=== PATIENT | female | born 1940 | race Caucasian/White ===

== ENCOUNTER 2020-01-15 08:20 | Observation (INO) ==
[2020-01-15] MEDS ORDERED: IOPAMIDOL 100 ML BOTTLE IV ONE (08:21)
[2020-01-15] MEDS ORDERED: 0.9 % SODIUM CHLORIDE 1,000 ML IV ONE (08:44)
[2020-01-15 08:48] LABS: POC Blood Urea Nitrogen 18 mg/dl (8-23); POC CO2 21 mmol/L (22-30); POC Calcium, Ionized 0.98 mmol/L (1.16-1.32); POC Chloride 105 mmol/L (96-108); POC Creatinine 0.6 mg/dl (0.6-1.1); POC Glucose, Random 130 mg/dL (70-105); POC Potassium 3.2 mmol/L (3.3-5.1); POC Sodium 138 mmol/L (133-145)
[2020-01-15] MEDS ORDERED: 0.9 % SODIUM CHLORIDE 1,000 ML IV SCH ×2 (09:15→13:15)
[2020-01-15 09:20] LABS: Basophils # (Auto) 0.05 K/mcL (0.00-0.30); Basophils % (Auto) 0.3 % (0.0-2.0); Eosinophils # (Auto) 0.03 K/mcL (0.00-0.70); Eosinophils % (Auto) 0.2 % (0.0-7.0); Granulocytes % (Auto) 80.5 % (38.0-78.0); Hematocrit 42.3 % (34.1-44.9); Hemoglobin 13.2 g/dL (11.2-15.7); Lymphocytes # (Auto) 1.52 K/mcL (1.50-4.80); Lymphocytes % (Auto) 9.4 % (15.5-49.0); Mean Cell Volume 77.5 fL (80.0-100.0); Mean Corpuscular HGB Conc 31.2 g/dL (31.0-36.0); Mean Platelet Volume 9.6 fL (7.4-10.4); Monocytes # (Auto) 1.55 K/mcL (0.10-0.90); Monocytes % (Auto) 9.6 % (1.0-12.0); Platelet Count 528 K/mcL (140-440); RBC 5.46 M/mcL (3.59-5.38); Red Cell Distribution Width 17.1 % (11.5-14.5); WBC 16.2 K/mcL (4.50-11.00)
--- NOTE | 2020-01-15 09:22 | XRay Report ---
INDICATION: confusion TECHNIQUE: AP portable upright chest x-ray COMPARISON: Previous chest x-ray dated 01/12/2020 and 12/25/2019 FINDINGS: Lungs:Left lung is negative. No parenchymal infiltrate or mass. There is density at the right lung base. Appearance is most consistent with a pleural reflection. No focal parenchymal mass or infiltrate. No interval change Heart, vascular:No significant cardiomegaly. Pulmonary vascularity is normal. No pulmonary edema or pulmonary congestion Mediastinum, [place]:No mediastinal widening. No hilar mass. There is a moderate to large hiatal hernia Pleura:No pleural fluid. No pleural-based mass or calcification Skeletal:No detectable rib fracture or lytic lesion. There is right convex thoracic scoliosis. IMPRESSION: 1. Hiatal hernia 2. No acute abnormality or interval change since 01/12/2020 Interpreted and Authenticated by: Mariano Rouse 01/15/20
[2020-01-15 09:39] LABS: ALT/SGPT 24 U/l (0-40); AST/SGOT 37 U/l (0-37); Albumin 4.1 gm/dL (3.2-5.2); Albumin/Globulin Ratio 0.9 (1.0-2.3); Alkaline Phosphatase 80 U/L (39-117); Bilirubin,Total 0.3 mg/dL (0.0-1.0); Blood Urea Nitrogen 18 mg/dl (8-23); Carbon Dioxide 22 mmol/L (22-30); Chloride 99 mmol/L (96-108); Globulin 4.5 gm/dL (2.2-3.7); Glomerular Filtration Rate 71; Glucose 128 mg/dL (70-105)
[2020-01-15 10:40] LABS: Appearance,Urine CLOUDY; Bacteria,Urine 0 /hpf (0); Bilirubin,Urine NEG (NEG); Color,Urine AMBER; Culture Indicated,Urine NO; Glucose,Urine (UA) 50 mg/dL (NEG); Ketones,Urine 20 mg/dL (NEG); Leukocyte Esterase,Urine NEG /uL (NEG); Mucus,Urine MANY /hpf (0); Nitrate,Urine NEG (NEG); Protein,Urine 100 mg/dL (NEG); Specific Gravity,Urine 1.019 (1.000-1.035); Urine Blood NEG mg/dL (<0.03); Urine Hyaline Cast 136 /lpf (0-2); Urine RBC 0 /hpf (0-1); Urine Squamous Epithelial Cell 0 /hpf (0-4); Urine WBC 4 /hpf (0-4); Urobilinogen,Urine NEG (NEG)
--- NOTE | 2020-01-15 11:53 | Cat Scan Report ---
INDICATION: confusion, vertigo COMPARISON: None. TECHNIQUE: Axial noncontrast-enhanced images through the brain. Sagittally and coronally reformatted images. FINDINGS: Cerebral hemispheres:No acute intra-axial hematoma. There is cerebral atrophy with prominent superficial subarachnoid spaces and ventricles. There is extensive white matter abnormality. Appearance is consistent with small vessel ischemic change in this 79-year-old patient. No focal intra-axial attenuation abnormality or localized mass effect. No acute abnormality. Brainstem and cerebellum:No intra-axial abnormality Extra-axial:No acute hemorrhage. No subdural or epidural hematoma. No subarachnoid hemorrhage. Basilar cisterns are normal Calvarial:No calvarial fracture. No lytic lesion Temporal bones are negative. No destructive lesions Soft tissue, orbits, sinuses:Orbits and visualized facial soft tissues are grossly normal. IMPRESSION: 1. Cerebral atrophy and severe white matter abnormality 2. No acute or focal intracranial abnormality. The exam was performed using radiation dose optimization techniques including, but not limited to, automated exposure control, adjustment of the mA and/or kV according to patient size and use of iterative reconstruction technique. Interpreted and Authenticated by: Mariano Rouse 01/15/20
--- NOTE | 2020-01-15 12:05 | Cat Scan Report ---
INDICATION: confusion, vertigo, urine incontinence, hallucinat COMPARISON: None. TECHNIQUE: Axial images were obtained through the abdomen and pelvis. Sagittally and coronally reformatted images. 70 mL Isovue 370 injected intravenously. Oral contrast material was not administered FINDINGS: Lung bases:Negative. No pulmonary parenchymal nodule. No pleural fluid or pericardial fluid. There is a moderate to large hiatal hernia. Liver:Low density liver consistent with hepatic steatosis. No focal hepatic mass. Liver contour is smooth. Gallbladder, bilary:No calcified gallstones. No gallbladder wall thickening. No dilated intra or extrahepatic bile ducts. Spleen:No splenomegaly. Normal enhancement of splenic and portal veins. Pancreas:No pancreatic mass. No peripancreatic abnormality Adrenal glands:Negative Kidneys, ureters, bladder:No solid or cystic renal mass. No hydronephrosis. Multiple nonobstructing renal calculi bilaterally. There is no significant hydronephrosis. There is no hydroureter. No ureteral stone No bladder calculi or detectable mass Gastrointestinal:There is extensive sigmoid diverticulosis. There are diverticula in the descending colon. Patient is status post previous partial colectomy with resection of the cecum and ascending colon. No detectable colonic mass. No evidence for acute diverticulitis. Small bowel is within normal limits. No mechanical small bowel obstruction. Stomach and duodenum are negative. Appendix: The appendix is not visualized due to previous partial colectomy. Vascular:Extensive calcified atherosclerotic plaque. No abdominal aortic aneurysm. There is calcified plaque in the common iliac arteries bilaterally. No aneurysm. Lymphatic:No retroperitoneal or mesenteric adenopathy Mesentery, peritoneum: No free intraperitoneal fluid. No mesenteric or retroperitoneal mass. Reproductive:Uterus is not identified. No adnexal mass Musculoskeletal:No lumbar compression fractures. Sacrum and pelvis are negative. No hip fracture. Multilevel degenerative disc disease and degenerative facet arthropathy. There is L5-S1 anterolisthesis. Multiple anterior abdominal wall hernias. There is no protruding bowel. No bowel obstruction. Hernias contain only mesenteric fat. There is no inguinal hernia. IMPRESSION: 1. Nonobstructing renal calculi bilaterally 2. Atherosclerotic disease. No abdominal aortic aneurysm 3. Previous partial colectomy. Sigmoid diverticulosis without evidence for diverticulitis 4. Multiple anterior abdominal wall hernias. No incarcerated bowel. No bowel obstruction 5. Hepatic steatosis 6. Degenerative disc disease. L5-S1 anterolisthesis The exam was performed using radiation dose optimization techniques including, but not limited to, automated exposure control, adjustment of the mA and/or kV according to patient size and use of iterative reconstruction technique. Interpreted and Authenticated by: Mariano Rouse 01/15/20
--- NOTE | 2020-01-15 12:19 | Emergency Department Note ---
Altered Mental Status HPI General Chief Complaint: Altered Mental Status Stated Complaint: altered mental status, dizzy, disoriented Time Seen by Provider: 01/15/20 09:03 Source: patient Mode of arrival: wheelchair Limitations: no limitations History of Present Illness HPI Narrative: Narrative: This 79-year-old female comes in complaining of urinary incontinence, vertigo, hallucinations, and weakness such that she cannot walk right now-she is having to hold onto things to get around. She denies fever or trouble breathing. Denies nausea vomiting. She is very thirsty right now and does not remember what she ate yesterday. She is on baclofen as well as cyclobenzaprine and took 3 muscle relaxers yesterday evening for back spasms-she does have pretty significant rheumatoid arthritis. She notes that she had horrible dreams. She is not a very good historian and cannot remember which she did yesterday. D enies fever recent illness Her daughter is in the room as well and gives me some additional history. She notes that this is an acute decline and normally she is able to function at home Related Data Home Medications Medication Instructions Recorded Confirmed calcium carbonate 500 mg PO DAILY 09/01/17 01/12/20 Previous Rx's Medication Instructions Recorded omeprazole 40 mg capsule,delayed 40 mg PO QDAY #90 cap 07/18/19 release baclofen 10 mg tablet 10 mg PO BID PRN #60 tab 08/16/19 ropinirole 0.5 mg tablet 0.5 mg PO .COMPLEX #150 tab 10/26/19 sertraline 50 mg tablet 50 mg PO QDAY #90 tab 11/13/19 ferrous sulfate 325 mg (65 mg 325 mg PO QDAY #30 tab 11/17/19 iron) tablet leflunomide 10 mg tablet See Rx Instructions .ROUTE 12/11/19 .COMPLEX #60 tab cyclobenzaprine 10 mg PO TID PRN #20 tab 12/25/19 hydrocodone 5 mg-acetaminophen 325 1 tab PO Q6H PRN #120 tab 01/12/20 mg tablet pregabalin 25 mg capsule 25 mg PO BID #60 cap 01/12/20 triamcinolone acetonide 0.5 % 1 applic TOPICAL BID #15 g 01/12/20 topical ointment Allergies Allergy/AdvReac Type Severity Reaction Status Date / Time No Known Drug Allergies Allergy Verified 01/15/20 08:22 seasonal allergies Allergy Unknown Unknown Uncoded 01/12/20 12:01 Review of Systems ROS ROS Narrative: Narrative: All systems ED: reviewed and negative except as stated. 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) Excessive sweating (Chronic) Chronic pain syndrome (Chronic) Knee pain (Chronic) Anxiety (Chronic) Fatigue (Chronic) Body aches (Chronic) Seasonal allergies (Chronic) Joint stiffness (Chronic) Joint pain (Chronic) Ankylosing spondylitis (Acute) Basal cell carcinoma (Chronic) Lumbar spondylosis (Chronic) PMR (polymyalgia rheumatica) (Chronic) Vertigo (Chronic) Hiatal hernia (Chronic) IBS (irritable bowel syndrome) (Chronic) Atrial fibrillation (Chronic) Thyroiditis (Chronic) Depression (Chronic) Rheumatic fever (Chronic) Rhinitis (Chronic) Back pain (Acute) Osteoarthritis (Acute) Rheumatoid arthritis (Acute) Medical History (Updated 01/15/20 @ 12:23 by Naman Childs MD) Ankylosing spondylitis (Acute) Anxiety (Chronic) Atrial fibrillation (Chronic) Back pain (Acute) Basal cell carcinoma (Chronic) Body aches (Chronic) Chronic pain syndrome (Chronic) Depression (Chronic) Encounter for long-term (current) use of high-risk medication (Acute) Encounter for wheelchair assessment (Chronic) Excessive sweating (Chronic) Fatigue (Chronic) Hiatal hernia (Chronic) History of echocardiogram (Chronic ~12/2011) History of EKG (Chronic ~08/2008) IBS (irritable bowel syndrome) (Chronic) Inflammatory arthritis (Acute) Joint pain (Chronic) Joint stiffness (Chronic) Knee pain (Chronic) Left knee pain (Acute) Lumbar spondylosis (Chronic) Normal CT scan of head (Chronic ~12/2011) Osteoarthritis (Acute) 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) PMR (polymyalgia rheumatica) (Chronic) Polyarthralgia (Acute) Rheumatic fever (Chronic) Rheumatoid arthritis (Acute) Rhinitis (Chronic) Screening mammogram, encounter for (Chronic ~12/2011) Seasonal allergies (Chronic) Thyroiditis (Chronic) Vertigo (Chronic) Surgical History (Updated 01/15/20 @ 12:23 by Naman Childs MD) History of colonoscopy (Chronic ~10/2010) History of knee surgery (Chronic) History of partial colectomy (Acute) Family History Father Arthritis Mother Hypertension Social History Smoking Status: Former smoker Alcohol Intake Frequency: does not drink Exam Narrative Narrative: Narrative: Alert oriented. No acute distress able to answer questions mostly appropriately. She is a relatively poor historian and there is some noted short-term memory deficits. Conjunctive are clear sclerae white nonicteric. Pupils are equal round and reactive. Extraocular movements are intact without nystagmus. She does not get increased nausea with moving her eyes. Bilateral tympanic membranes are normal with normal canals. Oropharynx is pink and moist. Tongue is midline. There is no dysarthria. Face is symmetrical. Neck is supple without lymphadenopathy or thyromegaly. No carotid bruit. Heart is regular rate and rhythm no murmur appreciated. Lungs are clear to auscultation bilaterally without wheezes rales rhonchi or respiratory distress. Abdomen is soft nontender nondistended. No peritoneal signs or guarding. No pedal edema. +2 radial pulse. General Limitations: no limitations Course Vital Signs Vital signs: Vital Signs Temperature 97.3 F 01/15/20 08:20 Pulse Rate 89 01/15/20 08:20 Respiratory Rate 20 01/15/20 08:20 Blood Pressure 128/71 01/15/20 08:20 Pulse Oximetry (%) 97 01/15/20 08:20 Temperature 97.3 F 01/15/20 08:20 Pulse Rate 76 01/15/20 10:16 Respiratory Rate 20 01/15/20 08:20 Blood Pressure 140/84 01/15/20 10:16 Pulse Oximetry (%) 98 01/15/20 10:16 MDM MDM Narrative Medical decision making narrative: Narrative: Evaluation work-up ordered with laboratory and chest x-ray. Exam was benign. History suggests possible overuse of muscle relaxers, that is an adverse drug event but suspect that would have worn off by now. Other things in the differential include urinary tract infection, pneumonia, infection or inflammation elsewhere Laboratory shows leukocytosis but urinalysis actually looks okay-despite her morning episode of incontinent. No acute cause is identified for her altered mental status. Chest x-ray is unrevealing. I reviewed her medical record and note that she has a ER visit and primary care visit in the last 2-week where she was diagnosed with pneumonia and given Augmentin and had some costochondritis as well. I discussed the case with Dr. Montemayor, our hospitalist as I did not feel this patient was safe to go home. She has some altered mental status with some confusion and leukocytosis unclear cause. We discussed the issues and felt patient would benefit from further investigation with CT scan of the head abdomen and pelvis. CT scans were unrevealing, did not show cause for her situation. I discussed with Dr. Montemayor again and he agreed to accept the patient for further care and evaluation in the hospital. I also discussed the situation with the patient and her daughter and they agreed with the plan to admit the patient for further care and work-up Lab Data Lab results reviewed: Yes I reviewed the patient's lab results. Result diagrams: 01/15/20 08:40 01/15/20 08:40 Labs: Lab Results 01/15/20 01/15/20 01/15/20 Range/Units 08:40 08:40 08:40 WBC 16.2 H (4.50-11.00) K/mcL RBC 5.46 H (3.59-5.38) M/mcL Hgb 13.2 (11.2-15.7) g/dL Hct 42.3 (34.1-44.9) % POC Hct 44.0 (36.0-48.0) % MCV 77.5 L (80.0-100.0) fL MCH 24.2 L (26.0-34.0) pg MCHC 31.2 (31.0-36.0) g/dL RDW 17.1 H (11.5-14.5) % Plt Count 528 H (140-440) K/mcL MPV 9.6 (7.4-10.4) fL Gran % 80.5 H (38.0-78.0) % Lymph % (Auto) 9.4 L (15.5-49.0) % [place] % (Auto) 9.6 (1.0-12.0) % Eos % (Auto) 0.2 (0.0-7.0) % Baso % (Auto) 0.3 (0.0-2.0) % Gran # 13.03 H (1.80-8.00) K/mcL Lymph # (Auto) 1.52 (1.50-4.80) K/mcL [place] # (Auto) 1.55 H (0.10-0.90) K/mcL Eos # (Auto) 0.03 (0.00-0.70) K/mcL Baso # (Auto) 0.05 (0.00-0.30) K/mcL VBG Lactic Acid 1.4 (0.5-2.0) mmol/L POC Sodium 138 (133-145) mmol/L Sodium 138 (133-145) mmol/L POC Potassium 3.2 L (3.3-5.1) mmol/L Potassium 3.4 (3.3-5.1) mmol/L POC Chloride 105 (96-108) mmol/L Chloride 99 (96-108) mmol/L Carbon Dioxide 22 (22-30) mmol/L POC Total CO2 21 L (22-30) mmol/L Anion Gap 17.0 H (8-16) POC BUN 18 (8-23) mg/dl BUN 18 (8-23) mg/dl Creatinine 0.8 (0.6-1.1) mg/dl POC Creatinine 0.6 (0.6-1.1) mg/dl GFR Calculation 71 Glucose 128 H (70-105) mg/dL POC Glucose 130 H (70-105) mg/dL Calcium 10.0 (8.6-10.4) mg/dl POC WB Ioniz Calcium 0.98 L (1.16-1.32) mmol/L Total Bilirubin 0.3 (0.0-1.0) mg/dL AST 37 (0-37) U/l ALT 24 (0-40) U/l Alkaline Phosphatase 80 (39-117) U/L Ammonia (11-51) umol/L Total Protein 8.6 H (5.9-8.4) gm/dL Albumin 4.1 (3.2-5.2) gm/dL Globulin 4.5 H (2.2-3.7) gm/dL Albumin/Globulin Ratio 0.9 L (1.0-2.3) Urine Color Urine Appearance Urine pH (5.0-9.0) Ur Specific [place] (1.000-1.035) Urine Protein (NEG) mg/dL Urine Glucose (UA) (NEG) mg/dL Urine Ketones (NEG) mg/dL Urine Occult Blood (<0.03) mg/dL Urine Nitrate (NEG) Urine Bilirubin (NEG) mg/dL Urine Urobilinogen (NEG) mg/dL Ur Leukocyte Esterase (NEG) /uL Urine RBC (0-1) /hpf Urine WBC (0-4) /hpf Ur Squamous Epith Cells (0-4) /hpf Urine Bacteria (0) /hpf Hyaline Casts (0-2) /lpf Urine Mucus (0) /hpf Ur Culture Indicated? 01/15/20 01/15/20 Range/Units 09:18 09:33 WBC (4.50-11.00) K/mcL RBC (3.59-5.38) M/mcL Hgb (11.2-15.7) g/dL Hct (34.1-44.9) % POC Hct (36.0-48.0) % MCV (80.0-100.0) fL MCH (26.0-34.0) pg MCHC (31.0-36.0) g/dL RDW (11.5-14.5) % Plt Count (140-440) K/mcL MPV (7.4-10.4) fL Gran % (38.0-78.0) % Lymph % (Auto) (15.5-49.0) % [place] % (Auto) (1.0-12.0) % Eos % (Auto) (0.0-7.0) % Baso % (Auto) (0.0-2.0) % Gran # (1.80-8.00) K/mcL Lymph # (Auto) (1.50-4.80) K/mcL [place] # (Auto) (0.10-0.90) K/mcL Eos # (Auto) (0.00-0.70) K/mcL Baso # (Auto) (0.00-0.30) K/mcL VBG Lactic Acid (0.5-2.0) mmol/L POC Sodium (133-145) mmol/L Sodium (133-145) mmol/L POC Potassium (3.3-5.1) mmol/L Potassium (3.3-5.1) mmol/L POC Chloride (96-108) mmol/L Chloride (96-108) mmol/L Carbon Dioxide (22-30) mmol/L POC Total CO2 (22-30) mmol/L Anion Gap (8-16) POC BUN (8-23) mg/dl BUN (8-23) mg/dl Creatinine (0.6-1.1) mg/dl POC Creatinine (0.6-1.1) mg/dl GFR Calculation Glucose (70-105) mg/dL POC Glucose (70-105) mg/dL Calcium (8.6-10.4) mg/dl POC WB Ioniz Calcium (1.16-1.32) mmol/L Total Bilirubin (0.0-1.0) mg/dL AST (0-37) U/l ALT (0-40) U/l Alkaline Phosphatase (39-117) U/L Ammonia 18 (11-51) umol/L Total Protein (5.9-8.4) gm/dL Albumin (3.2-5.2) gm/dL Globulin (2.2-3.7) gm/dL Albumin/Globulin Ratio (1.0-2.3) Urine Color [place] Urine Appearance Cloudy Urine pH 5.0 (5.0-9.0) Ur Specific [place] 1.019 (1.000-1.035) Urine Protein 100 A (NEG) mg/dL Urine Glucose (UA) 50 A (NEG) mg/dL Urine Ketones 20 A (NEG) mg/dL Urine Occult Blood Neg (<0.03) mg/dL Urine Nitrate Neg (NEG) Urine Bilirubin Neg (NEG) mg/dL Urine Urobilinogen Neg (NEG) mg/dL Ur Leukocyte Esterase Neg (NEG) /uL Urine RBC 0 (0-1) /hpf Urine WBC 4 (0-4) /hpf Ur Squamous Epith Cells 0 (0-4) /hpf Urine Bacteria 0 (0) /hpf Hyaline Casts 136 H (0-2) /lpf Urine Mucus Many A (0) /hpf Ur Culture Indicated? No Radiology Data Radiology results reviewed: Yes I reviewed the patient's radiology results. Radiology results narrative: Chest x-ray showed no change CT scan of the head without contrast and CT scan of the abdomen pelvis with contrast did not show any acute finding Discharge Plan Patient/Caregiver Discharge Instructions Pt seen by JOB HAND/PA only: No Clinical Impression: Weakness Altered mental status Qualifiers: Altered mental status type: disorientation Qualified Code(s): R41.0 - Disorientation, unspecified Leukocytosis Qualifiers: Leukocytosis type: unspecified Qualified Code(s): D72.829 - Elevated white blood cell count, unspecified Patient Disposition: Xfer As Inpt ([facility]) Condition: Fair Follow up with: Christy Tovar ARNP [Primary Care Provider] - Prescriptions: No Action ropinirole 0.5 mg tablet 0.5 mg PO .COMPLEX Qty: 150 RF: 3 ferrous sulfate 325 mg (65 mg iron) tablet 325 mg PO QDAY Qty: 30 RF: 0 hydrocodone-acetaminophen 5-325 mg tablet 1 tab PO Q6H PRN (Reason: pain) Qty: 120 RF: 0 pregabalin [Lyrica] 25 mg capsule 25 mg PO BID Qty: 60 RF: 0 triamcinolone acetonide 0.5 % ointment 1 applic TOPICAL BID Qty: 15 RF: 1 omeprazole 40 mg capsule,delayed release 40 mg capsule,delayed release(DR/EC) 40 mg PO QDAY Qty: 90 RF: 4 baclofen 10 mg tablet 10 mg PO BID PRN (Reason: muscle pain) Qty: 60 RF: 2 sertraline 50 mg tablet 50 mg PO QDAY Qty: 90 RF: 0 leflunomide 10 mg tablet See Rx Instructions .ROUTE .COMPLEX Qty: 60 RF: 3 calcium carbonate 500 MG tablet 500 mg PO DAILY RF: 0 cyclobenzaprine 10 mg tablet 10 mg PO TID PRN (Reason: muscle spasm) Qty: 20 RF: 0
[2020-01-15] MEDS ORDERED: ONDANSETRON 4 MG/2 ML VIAL IV PRN ×2 (13:02→14:27)
[2020-01-15] MEDS ORDERED: 0.9 % SODIUM CHLORIDE 10 ML SYRINGE IV SCH (14:00)
[2020-01-15 14:01] LABS: Thyroid Stimulating Hormone 2.08 uIU/ml (0.27-5.01); proBNP 832.1 pg/ml (0-450)
[2020-01-15 14:10] LABS: Phosphorous 3.3 mg/dL (2.7-4.5)
[2020-01-15 14:13] LABS: Hemoglobin A1C 6.3 % HGB (4.0-6.0)
[2020-01-15] MEDS: 0.9 % SODIUM CHLORIDE 1,000 ML IV SCH (14:38)
--- NOTE | 2020-01-15 16:21 | Internal Med History&Physical ---
HPI History of Present Illness Patient information: Note initiated : 01/15/20 at 4:09 pm Service Date, if different from initiated Date: [] Patient: Latoya Delgado a 79 y/o F admitted on 01/15/20 for altered mental status, dizzy, disoriented. Chief Complaint: [AMS] History of present illness: Ms. Delgado is a 79 year old F with a history of atrial fibrillation, high blood pressure, and a rheumatoid arthritis who was brought to the ER due to AMS. Patient is a poor historian. Patient experienced urinary incontinence, vertigo, hallucinations, vomiting and generalized weakness this morning. She was so weak to walk. But she can not remember what exactly happened. Pt lives alone. When I saw pt in the ER, daughter stayed with her in her room. As per daughter, pt's mental status is not at her normal status. But she denied headache, dizziness, shortness of breath, abdominal pain, diarrhea, fever, chills, dysuria, or changes in vision. Denies recent travel or sick contact. As per ER physician Dr. Avina, "she is on baclofen as well as cyclobenzaprine and took 3 muscle relaxers yesterday evening for back spasms" In the ER, CT of the head, abdomen and pelvis negative for acute changes. Review of Systems All systems: reviewed and no additional remarkable complaints except as stated [facility] Medical History Ankylosing spondylitis (Acute) Anxiety (Chronic) Atrial fibrillation (Chronic) Back pain (Acute) Basal cell carcinoma (Chronic) Body aches (Chronic) Chronic pain syndrome (Chronic) Depression (Chronic) Encounter for long-term (current) use of high-risk medication (Acute) Encounter for wheelchair assessment (Chronic) Excessive sweating (Chronic) Fatigue (Chronic) Hiatal hernia (Chronic) History of echocardiogram (Chronic ~12/2011) History of EKG (Chronic ~08/2008) IBS (irritable bowel syndrome) (Chronic) Inflammatory arthritis (Acute) Joint pain (Chronic) Joint stiffness (Chronic) Knee pain (Chronic) Left knee pain (Acute) Lumbar spondylosis (Chronic) Normal CT scan of head (Chronic ~12/2011) Osteoarthritis (Acute) 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) PMR (polymyalgia rheumatica) (Chronic) Polyarthralgia (Acute) Rheumatic fever (Chronic) Rheumatoid arthritis (Acute) Rhinitis (Chronic) Screening mammogram, encounter for (Chronic ~12/2011) Seasonal allergies (Chronic) Thyroiditis (Chronic) Vertigo (Chronic) Surgical History History of colonoscopy (Chronic ~10/2010) History of knee surgery (Chronic) History of partial colectomy (Acute) Family History Father Arthritis Mother Hypertension Social History marital status: smoking status: Former smoker alcohol intake frequency: does not drink MEDS/ALLERGIES Home Medications and Allergies Home Medications Medication Instructions Recorded Confirmed Type omeprazole 40 mg capsule,delayed 40 mg PO QDAY #90 cap 07/18/19 01/15/20 Rx release baclofen 10 mg tablet 10 mg PO BID PRN #60 tab 08/16/19 01/15/20 Rx ropinirole 0.5 mg tablet 0.5 mg PO .COMPLEX #150 tab 10/26/19 01/15/20 Rx sertraline 50 mg tablet 50 mg PO QDAY #90 tab 11/13/19 01/15/20 Rx ferrous sulfate 325 mg (65 mg 325 mg PO QDAY #30 tab 11/17/19 01/15/20 Rx iron) tablet leflunomide 10 mg tablet See Rx Instructions .ROUTE 12/11/19 01/15/20 Rx .COMPLEX #60 tab cyclobenzaprine 10 mg PO TID PRN #20 tab 12/25/19 01/15/20 Rx hydrocodone 5 mg-acetaminophen 325 1 tab PO Q6H PRN #120 tab 01/12/20 01/15/20 Rx mg tablet pregabalin 25 mg capsule 25 mg PO BID #60 cap 01/12/20 01/15/20 Rx triamcinolone acetonide 0.5 % 1 applic TOPICAL BID #15 g 01/12/20 01/15/20 Rx topical ointment Allergies Allergy/AdvReac Type Severity Reaction Status Date / Time No Known Drug Allergies Allergy Verified 01/15/20 15:56 seasonal allergies Allergy Unknown Unknown Uncoded 01/12/20 12:01 EXAM Constitutional Vitals: Temp Pulse Resp BP Pulse Ox 99.5 F H 71 20 165/85 97 01/15/20 14:13 01/15/20 14:13 01/15/20 14:13 01/15/20 14:13 01/15/20 14:13 Additional findings Additional findings: General - No acute distress Eyes - PERRLA, EOM intact ENT no rhinorrhea, no noticeable or palpable swelling, no redness or rash ar ound throat or on face Neck supple, no JVD, no thyromegaly Respiratory: Lungs -clear, no wheezing or crackles. Cardiovascular - RRR no m/r/g, GI - Normal bowel sounds, no distended, soft, diffusely mild to moderate tenderness. Extremeties - No edema, cyanosis or clubbing Hemo/lymphatic/immune no lymphadenopathy Neurological awake and oriented x 1-2, no focal neurological deficits. Psychiatry flat affect DATA Data Completed and Pending Labs on day of discharge: Labs from last 24 hours 01/15/20 01/15/20 01/15/20 09:33 09:18 08:40 WBC RBC Hgb Hct POC Hct MCV MCH MCHC RDW Plt Count MPV Gran % Lymph % (Auto) [place] % (Auto) Eos % (Auto) Baso % (Auto) Gran # Lymph # (Auto) [place] # (Auto) Eos # (Auto) Baso # (Auto) VBG Lactic Acid 1.4 POC Sodium Sodium POC Potassium Potassium POC Chloride Chloride Carbon Dioxide POC Total CO2 Anion Gap POC BUN BUN Creatinine POC Creatinine GFR Calculation Glucose POC Glucose Hemoglobin A1c Estim Average Glucose Calcium POC WB Ioniz Calcium Phosphorus Total Bilirubin AST ALT Alkaline Phosphatase Ammonia 18 NT-Pro-B Natriuret Pep Total Protein Albumin Globulin Albumin/Globulin Ratio Procalcitonin TSH Urine Color Estefany Urine Appearance Cloudy Urine pH 5.0 Ur Specific [place] 1.019 Urine Protein 100 A Urine Glucose (UA) 50 A Urine Ketones 20 A Urine Occult Blood Neg Urine Nitrate Neg Urine Bilirubin Neg Urine Urobilinogen Neg Ur Leukocyte Esterase Neg Urine RBC 0 Urine WBC 4 Ur Squamous Epith Cells 0 Urine Bacteria 0 Hyaline Casts 136 H Urine Mucus Many A Ur Culture Indicated? No 01/15/20 01/15/20 01/15/20 08:40 08:40 08:04 WBC 16.2 H RBC 5.46 H Hgb 13.2 Hct 42.3 POC Hct 44.0 MCV 77.5 L MCH 24.2 L MCHC 31.2 RDW 17.1 H Plt Count 528 H MPV 9.6 Gran % 80.5 H Lymph % (Auto) 9.4 L [place] % (Auto) 9.6 Eos % (Auto) 0.2 Baso % (Auto) 0.3 Gran # 13.03 H Lymph # (Auto) 1.52 [place] # (Auto) 1.55 H Eos # (Auto) 0.03 Baso # (Auto) 0.05 VBG Lactic Acid POC Sodium 138 Sodium 138 POC Potassium 3.2 L Potassium 3.4 POC Chloride 105 Chloride 99 Carbon Dioxide 22 POC Total CO2 21 L Anion Gap 17.0 H POC BUN 18 BUN 18 Creatinine 0.8 POC Creatinine 0.6 GFR Calculation 71 Glucose 128 H POC Glucose 130 H Hemoglobin A1c Estim Average Glucose Calcium 10.0 POC WB Ioniz Calcium 0.98 L Phosphorus Total Bilirubin 0.3 AST 37 ALT 24 Alkaline Phosphatase 80 Ammonia NT-Pro-B Natriuret Pep Total Protein 8.6 H Albumin 4.1 Globulin 4.5 H Albumin/Globulin Ratio 0.9 L Procalcitonin 0.06 TSH Urine Color Urine Appearance Urine pH Ur Specific [place] Urine Protein Urine Glucose (UA) Urine Ketones Urine Occult Blood Urine Nitrate Urine Bilirubin Urine Urobilinogen Ur Leukocyte Esterase Urine RBC Urine WBC Ur Squamous Epith Cells Urine Bacteria Hyaline Casts Urine Mucus Ur Culture Indicated? 01/15/20 08:04 WBC RBC Hgb Hct POC Hct MCV MCH MCHC RDW Plt Count MPV Gran % Lymph % (Auto) [place] % (Auto) Eos % (Auto) Baso % (Auto) Gran # Lymph # (Auto) [place] # (Auto) Eos # (Auto) Baso # (Auto) VBG Lactic Acid POC Sodium Sodium POC Potassium Potassium POC Chloride Chloride Carbon Dioxide POC Total CO2 Anion Gap POC BUN BUN Creatinine POC Creatinine GFR Calculation Glucose POC Glucose Hemoglobin A1c 6.3 H Estim Average Glucose 134 Calcium POC WB Ioniz Calcium Phosphorus 3.3 Total Bilirubin AST ALT Alkaline Phosphatase Ammonia NT-Pro-B Natriuret Pep 832.1 H Total Protein Albumin Globulin Albumin/Globulin Ratio Procalcitonin TSH 2.08 Urine Color Urine Appearance Urine pH Ur Specific [place] Urine Protein Urine Glucose (UA) Urine Ketones Urine Occult Blood Urine Nitrate Urine Bilirubin Urine Urobilinogen Ur Leukocyte Esterase Urine RBC Urine WBC Ur Squamous Epith Cells Urine Bacteria Hyaline Casts Urine Mucus Ur Culture Indicated? A/P Narrative A/P Narrative: 1. AMS/acute encepholapthy Etiology unknown Could be due to overdose of muscle relaxers. But she has mild leukocytosis. Urinalysis negative. Chest x-ray negative. I will order procalcitonin and closely monitor her. No antibiotic at this moment No focal neurologic deficits traffic monitor specialist Pulse ox IV fluid I will hold her baclofen, cyclobenzaprine and narcotics monitor 2. Atrial fibrillaiton HR controlled Not on anticoagulation will discuss with pt. 3. Rheumatoid arthritis continue home med leflunomide 4. HTN BP controlled continue home meds 5. Leukocytosis Etiology unknown Could be due to acute distress IV fluid Repeat CBC in morning 6. Hypokalemia Replated Repeat in the morning 7. DVT prophylaxis: Lovenox 8. CODE STATUS: Full Both patient and daughter agreed with CPR and intubation. Time Spent With Patient Time: Total time spent is greater than 50% in coordination of care (as documented) at patient's floor/unit and/or counseling patient: QUALITY VTE Deep Vein Thrombosis/Pulmonary Embolism Present on Admission: No
[2020-01-15] MEDS ORDERED: PREGABALIN 25 MG CAPSULE PO SCH (21:00)
[2020-01-15] MEDS ORDERED: DOCUSATE SODIUM 100 MG CAPSULE PO SCH (21:00)
[2020-01-15] MEDS: 0.9 % SODIUM CHLORIDE 10 ML SYRINGE IV SCH ×2 (21:17→21:22)
[2020-01-15] MEDS: TRIAMCINOLONE CRM 0.5% TUBE 15GM TOPICAL SCH ×2 (21:17→21:22)
[2020-01-15] MEDS: POTASSIUM CHLORIDE 20 MEQ TABLET PO SCH (21:21)
[2020-01-15] MEDS: DOCUSATE SODIUM 100 MG CAPSULE PO SCH (21:22)
[2020-01-15] MEDS: traMADol 50 MG TABLET PO PRN (21:23)
[2020-01-15] MEDS: rOPINIRole 0.25 MG TABLET PO PRN (21:26)
[2020-01-16] MEDS: POTASSIUM CHLORIDE 20 MEQ TABLET PO SCH (00:07)
[2020-01-16] MEDS ORDERED: POTASSIUM CHLORIDE 20 MEQ TABLET PO ONE (00:11)
[2020-01-16] MEDS: 0.9 % SODIUM CHLORIDE 1,000 ML IV SCH ×3 (02:30→17:21)
[2020-01-16] MEDS: traMADol 50 MG TABLET PO PRN ×4 (03:39→22:57)
[2020-01-16] MEDS: 0.9 % SODIUM CHLORIDE 10 ML SYRINGE IV SCH ×2 (04:00→16:29)
[2020-01-16 07:08] LABS: Basophils # (Auto) 0.04 K/mcL (0.00-0.30); Basophils % (Auto) 0.3 % (0.0-2.0); Eosinophils # (Auto) 0.24 K/mcL (0.00-0.70); Granulocytes % (Auto) 70.2 % (38.0-78.0); Hematocrit 34.6 % (34.1-44.9); Hemoglobin 10.3 g/dL (11.2-15.7); Lymphocytes % (Auto) 15.9 % (15.5-49.0); Mean Cell Volume 80.7 fL (80.0-100.0); Mean Corpuscular HGB Conc 29.8 g/dL (31.0-36.0); Mean Platelet Volume 9.3 fL (7.4-10.4); Monocytes # (Auto) 1.39 K/mcL (0.10-0.90); Monocytes % (Auto) 11.6 % (1.0-12.0); Platelet Count 419 K/mcL (140-440); RBC 4.29 M/mcL (3.59-5.38); Red Cell Distribution Width 17.3 % (11.5-14.5)
[2020-01-16 07:30] LABS: ALT/SGPT 21 U/l (0-40); AST/SGOT 25 U/l (0-37); Albumin 3.2 gm/dL (3.2-5.2); Alkaline Phosphatase 56 U/L (39-117); Bilirubin,Total 0.2 mg/dL (0.0-1.0); Blood Urea Nitrogen 21 mg/dl (8-23); Calcium 7.9 mg/dl (8.6-10.4); Carbon Dioxide 22 mmol/L (22-30); Chloride 100 mmol/L (96-108); Globulin 3.1 gm/dL (2.2-3.7); Glomerular Filtration Rate 100; Glucose 128 mg/dL (70-105)
[2020-01-16] MEDS: rOPINIRole 0.25 MG TABLET PO PRN ×2 (07:31→20:19)
[2020-01-16] MEDS: OMEPRAZOLE 20 MG CAPSULE PO SCH (07:32)
[2020-01-16] MEDS ORDERED: ENOXAPARIN 40 MG/0.4 ML SYRINGE SQ SCH (09:00)
[2020-01-16] MEDS: METOPROLOL SUCCINATE 25 MG TAB.XL.24H PO SCH (09:50)
[2020-01-16] MEDS: DOCUSATE SODIUM 100 MG CAPSULE PO SCH ×2 (09:52→20:19)
[2020-01-16] MEDS: FERROUS SULFATE 325 MG TABLET PO SCH (09:52)
[2020-01-16] MEDS: amLODIPine 5 MG TABLET PO SCH (09:52)
[2020-01-16] MEDS: ENOXAPARIN 40 MG/0.4 ML SYRINGE SQ SCH (09:54)
[2020-01-16] MEDS: TRIAMCINOLONE CRM 0.5% TUBE 15GM TOPICAL SCH ×2 (09:56→20:19)
[2020-01-16] MEDS ORDERED: PNEUMOCOCCAL 23-VAL P-SAC VAC 0.5 ML SYRINGE IM ONE (10:00)
--- NOTE | 2020-01-16 15:18 | Internal Med Progress Note ---
SUBJECTIVE Subjective Patient information: Note initiated : 01/16/20 at 3:10 pm Service Date, if different from initiated Date: [] Patient: Latoya Delgado a 79 y/o F admitted on 01/15/20 for altered mental status, dizzy, disoriented. Chief Complaint: [] Interval History: Ms. Delgado is a 79 year old F with a history of atrial fibrillation, high blood pressure, and a rheumatoid arthritis who was brought to the ER due to AMS. Patient is a poor historian. Patient experienced urinary incontinence, vertigo, hallucinations, vomiting and generalized weakness this morning. She was so weak to walk. But she can not remember what exactly happened. Pt lives alone. When I saw pt in the ER, daughter stayed with her in her room. As per daughter, pt's mental status is not at her normal status. But she denied headache, dizziness, shortness of breath, abdominal pain, diarrhea, fever, chills, dysuria, or changes in vision. Denies recent travel or sick contact. As per ER physician Dr. Avina, "she is on baclofen as well as cyclobenzaprine and took 3 muscle relaxers yesterday evening for back spasms" In the ER, CT of the head, abdomen and pelvis negative for acute changes. 01/15 This morning patient told me that she feels probable. She had nausea and vomiting. But patient white blood cells went down to 5.0 from 16.2. Afebrile. Her blood pressure is not well controlled. She had one episode of SVT last night. Review of Systems All systems: reviewed and no additional remarkable complaints except as stated I feel she is improving mentally. She can answer my questions appropriately. Constitutional Vitals: Vital Signs Temp Pulse Resp BP Pulse Ox 96.9 F L 72 22 152/80 95 01/16/20 12:00 01/16/20 12:00 01/16/20 12:00 01/16/20 12:00 01/16/20 12:00 Period Temp Pulse Resp BP Sys/Agustin Pulse Ox Last 24 Hr 96.9 F-98.5 F 70-87 22-24 152-161/73-83 91-95 Intake and Output 01/16/20 01/16/20 01/16/20 05:59 13:59 21:59 Intake Total 2040 747 Output Total 1000 600 Balance 1040 147 Intake & Output: Intake & Output 01/16/20 01/16/20 01/16/20 05:59 13:59 21:59 Intake Total 2040 747 Output Total 1000 600 Balance 1040 147 Intake: IV 1000 747 Sodium Chloride 0.9% 1,000 ml @ 1000 747 100 mls/hr IV .Q10H GAVIN Rx#: [id number] Oral 1040 Output: Void Amount 1000 600 Other: Meal Lunch Percent of Meal Consumed 50% Feeding Ability Assist with Tray Set Up Urine Appearance Clear Clear Urine Color Dark Yellow Bright Yellow Urine Odor Normal Strong # Voids 1 Additional findings Additional findings: General - No acute distress Eyes - PERRLA, EOM intact ENT no rhinorrhea, no noticeable or palpable swelling, no redness or rash around throat or on face Neck supple, no JVD, no thyromegaly Respiratory: Lungs -clear, no wheezing or crackles. Cardiovascular - RRR no m/r/g, GI - Normal bowel sounds, no distended, soft, diffusely mild to moderate tenderness. Extremeties - No edema, cyanosis or clubbing Hemo/lymphatic/immune no lymphadenopathy Neurological awake and oriented x 3, no focal neurological deficits. Psychiatry flat affect OBJ DATA Labs CBC & Chem 7: 01/16/20 05:30 01/16/20 05:30 Labs: Abnormal Lab Results 01/16/20 01/16/20 01/15/20 05:30 05:30 09:33 WBC 12.0 H RBC Hgb 10.3 L MCV MCH 24.0 L MCHC 29.8 L RDW 17.3 H Plt Count Gran % Lymph % (Auto) Gran # 8.39 [place] # (Auto) 1.39 H POC Potassium POC Total CO2 Anion Gap Creatinine 0.4 L Glucose 128 H POC Glucose Hemoglobin A1c Calcium 7.9 L POC WB Ioniz Calcium NT-Pro-B Natriuret Pep Total Protein Globulin Albumin/Globulin Ratio Urine Protein 100 A Urine Glucose (UA) 50 A Urine Ketones 20 A Hyaline Casts 136 H Urine Mucus Many A 01/15/20 01/15/20 01/15/20 08:40 08:40 08:04 WBC 16.2 H RBC 5.46 H Hgb MCV 77.5 L MCH 24.2 L MCHC RDW 17.1 H Plt Count 528 H Gran % 80.5 H Lymph % (Auto) 9.4 L Gran # 13.03 [place] # (Auto) 1.55 H POC Potassium 3.2 L POC Total CO2 21 L Anion Gap 17.0 H Creatinine Glucose 128 H POC Glucose 130 H Hemoglobin A1c 6.3 H Calcium POC WB Ioniz Calcium 0.98 L NT-Pro-B Natriuret Pep 832.1 H Total Protein 8.6 H Globulin 4.5 H Albumin/Globulin Ratio 0.9 L Urine Protein Urine Glucose (UA) Urine Ketones Hyaline Casts Urine Mucus Meds: Medications Amlodipine Besylate (Norvasc) 2.5 mg PO DAILY [facility] Last Admin: 01/16/20 09:52 Dose: 2.5 mg Documented by: Docusate Sodium (Colace) 100 mg PO BID [facility] Last Admin: 01/16/20 09:52 Dose: 100 mg Documented by: Enoxaparin Sodium (Lovenox) 40 mg SQ DAILY [facility] Last Admin: 01/16/20 09:54 Dose: 40 mg Documented by: Ferrous Sulfate (Ferrous Sulfate) 325 mg PO QDAY [facility] Last Admin: 01/16/20 09:52 Dose: 325 mg Documented by: Sodium Chloride (Sodium Chloride 0.9%) 1,000 mls @ 100 mls/hr IV .Q10H [facility] Last Admin: 01/16/20 09:58 Dose: 100 mls/hr Documented by: Metoprolol Succinate (Toprol Xl) 12.5 mg PO DAILY [facility] Last Admin: 01/16/20 09:50 Dose: 12.5 mg Documented by: Omeprazole (Prilosec) 40 mg PO ACB [facility] Last Admin: 01/16/20 07:32 Dose: 40 mg Documented by: Ondansetron HCl (Zofran) 4 mg IV Q6HP PRN PRN Reason: Nausea And Vomiting Leflunomide 20 Mg (Tab) 1 dose PO BID [facility] Last Admin: 01/16/20 09:56 Dose: Not Given Documented by: Ropinirole HCl (Requip) 0.5 mg PO 5XD PRN PRN Reason: RESTLESS LEG Last Admin: 01/16/20 07:31 Dose: 0.5 mg Documented by: Sodium Chloride (Saline Flush) 10 ml IV Q8 [facility] Last Admin: 01/16/20 04:00 Dose: Not Given Documented by: Tramadol HCl (Ultram) 50 mg PO Q6HP PRN PRN Reason: Pain Last Admin: 01/16/20 09:53 Dose: 50 mg Documented by: Triamcinolone Acetonide (Kenalog Crm 0.5%) 1 dose TOPICAL BID [facility] Last Admin: 01/16/20 09:56 Dose: Not Given Documented by: A/P Narrative A/P Narrative: 1. AMS/acute encepholapthy Etiology unknown Could be due to overdose of muscle relaxers. But she has mild leukocytosis. Urinalysis negative. Chest x-ray negative. Procalcitonin 0.06. Continue to closely monitor her. No antibiotic at this moment No focal neurologic deficits monitoring engineer Pulse ox IV fluid Continue to hold her baclofen, cyclobenzaprine and narcotics monitor 2. Atrial fibrillaiton HR controlled Not on anticoagulation will discuss with pt who told me that her doctor told her she does not need it. I explained the benefits and risk of anticoagulation and advised her to f/u with pcp and cardiology. She agreed with the plan. Metoprolol 3. Rheumatoid arthritis continue home med leflunomide 4. HTN BP not well controlled initiated amlodipine and metoprolol 5. Leukocytosis went down Etiology unknown Could be due to acute distress IV fluid Repeat CBC in morning 6. Hypokalemia Replated Repeat in the morning 7. Non-sustained SVT mag 1.8 metoprolol 25mg daily monitor 8. DVT prophylaxis: Lovenox 9. CODE STATUS: Full Both patient and daughter agreed with CPR and intubation. Time Spent With Patient Time: Total time spent is greater than 50% in coordination of care (as documented) at patient's floor/unit and/or counseling patient: QUALITY VTE Deep Vein Thrombosis/Pulmonary Embolism Present on Admission: No
[2020-01-17] MEDS: 0.9 % SODIUM CHLORIDE 1,000 ML IV SCH ×3 (01:13→06:43)
[2020-01-17] MEDS: 0.9 % SODIUM CHLORIDE 10 ML SYRINGE IV SCH ×3 (01:15→17:07)
[2020-01-17] MEDS: rOPINIRole 0.25 MG TABLET PO PRN ×2 (01:17→11:34)
[2020-01-17] MEDS: traMADol 50 MG TABLET PO PRN ×3 (05:34→18:04)
[2020-01-17] MEDS: OMEPRAZOLE 20 MG CAPSULE PO SCH (06:44)
[2020-01-17 07:43] LABS: Basophils # (Auto) 0.05 K/mcL (0.00-0.30); Basophils % (Auto) 0.4 % (0.0-2.0); Eosinophils % (Auto) 4.4 % (0.0-7.0); Granulocytes % (Auto) 69.9 % (38.0-78.0); Hematocrit 34.5 % (34.1-44.9); Hemoglobin 10.7 g/dL (11.2-15.7); Lymphocytes # (Auto) 1.78 K/mcL (1.50-4.80); Lymphocytes % (Auto) 15.6 % (15.5-49.0); Mean Cell Volume 77.9 fL (80.0-100.0); Mean Platelet Volume 9.5 fL (7.4-10.4); Monocytes # (Auto) 1.11 K/mcL (0.10-0.90); Monocytes % (Auto) 9.7 % (1.0-12.0); Platelet Count 395 K/mcL (140-440); RBC 4.43 M/mcL (3.59-5.38); Red Cell Distribution Width 16.8 % (11.5-14.5); WBC 11.4 K/mcL (4.50-11.00)
[2020-01-17 07:53] LABS: ALT/SGPT 21 U/l (0-40); AST/SGOT 21 U/l (0-37); Albumin/Globulin Ratio 0.9 (1.0-2.3); Alkaline Phosphatase 65 U/L (39-117); Bilirubin,Total 0.2 mg/dL (0.0-1.0); Blood Urea Nitrogen 8 mg/dl (8-23); Calcium 8.5 mg/dl (8.6-10.4); Carbon Dioxide 23 mmol/L (22-30); Chloride 101 mmol/L (96-108); Globulin 3.4 gm/dL (2.2-3.7); Glucose 108 mg/dL (70-105)
[2020-01-17 07:54] LABS: Glomerular Filtration Rate 93
[2020-01-17] MEDS: amLODIPine 5 MG TABLET PO SCH (09:05)
[2020-01-17] MEDS: ENOXAPARIN 40 MG/0.4 ML SYRINGE SQ SCH (09:05)
[2020-01-17] MEDS: DOCUSATE SODIUM 100 MG CAPSULE PO SCH (09:06)
[2020-01-17] MEDS: METOPROLOL SUCCINATE 25 MG TAB.XL.24H PO SCH (09:06)
[2020-01-17] MEDS: FERROUS SULFATE 325 MG TABLET PO SCH (09:07)
[2020-01-17] MEDS: TRIAMCINOLONE CRM 0.5% TUBE 15GM TOPICAL SCH (09:08)
[2020-01-17] MEDS ORDERED: POTASSIUM CHLORIDE 20 MEQ TABLET PO ONE (09:16)
--- NOTE | 2020-01-17 11:04 | Discharge Summary ---
Discharge Provider Provider Patient information: Note initiated : 01/17/20 at 10:57 am Service Date, if different from initiated Date: [] Patient: Latoya Delgado 79 y/o F admitted on 01/15/20 for altered mental status, dizzy, disoriented. Chief Complaint: [] Date of admission: 01/15/20 14:13 Discharge date: 01/17/20 Primary care physician: Christy Tovar Consults: 01/15/20 Consult to Physician [CONS] Stat Comment: Consulting Provider: Kalie Montemayor Reason For Exam: Physician to Consult Discharge Meds Discharge Medications Home Medications omeprazole 40 mg capsule,delayed release 40 mg PO QDAY #90 cap 07/18/19 [Rx Confirmed 01/15/20 Last Taken Unknown] ropinirole 0.5 mg tablet 0.5 mg PO .COMPLEX #150 tab 10/26/19 [Rx Confirmed 01/15/20 Last Taken Unknown] sertraline 50 mg tablet 50 mg PO QDAY #90 tab 11/13/19 [Rx Confirmed 01/15/20 Last Taken Unknown] ferrous sulfate 325 mg (65 mg iron) tablet 325 mg PO QDAY #30 tab 11/17/19 [Rx Confirmed 01/15/20 Last Taken Unknown] leflunomide 10 mg tablet See Rx Instructions .ROUTE .COMPLEX #60 tab 12/11/19 [Rx Confirmed 01/15/20 Last Taken Unknown] triamcinolone acetonide 0.5 % topical ointment 1 applic TOPICAL BID #15 g 01/12/20 [Rx Confirmed 01/15/20 Last Taken Unknown] amlodipine 5 mg PO DAILY #30 tab 01/17/20 [Rx Last Taken Unknown] docusate sodium 100 mg PO BID #30 cap 01/17/20 [Rx Last Taken Unknown] metoprolol succinate 12.5 mg PO DAILY #30 tab 01/17/20 [Rx Last Taken Unknown] COURSE Hospital Course Hospital course: 1. AMS/acute encepholapthy resolved (answers questions appropriately) Etiology unknown. But most likely due to overdose of muscle relaxers. But she has mild leukocytosis. No focal neurologic deficits glaucoma specialist Pulse ox IV fluid Continue to hold her baclofen, cyclobenzaprine and narcotics monitor 2. Atrial fibrillaiton HR controlled Not on anticoagulation will discuss with pt who told me that her doctor told her she does not need it. I explained the benefits and risk of anticoagulation and advised her to f/u with pcp and cardiology. She agreed with the plan. Metoprolol 3. Rheumatoid arthritis continue home med leflunomide 4. HTN BP not well controlled initiated amlodipine and metoprolol 5. Leukocytosis went down to 11.4 Etiology unknown Could be due to acute distress Urinalysis negative. Chest x-ray negative. Procalcitonin 0.06. There is not clinical evidence of infection. CT abb/pelvis negative for acute changes. IV fluid Repeat CBC in 3 days 6. Hypokalemia Replated Repeat in the morning 7. Non-sustained SVT mag 1.8 metoprolol 25mg daily monitor Interval history: Ms. Delgado is a 79 year old F with a history of atrial fibrillation, high blood pressure, and a rheumatoid arthritis who was brought to the ER due to AMS. Patient is a poor historian. Patient experienced urinary incontinence, vertigo, hallucinations, vomiting and generalized weakness this morning. She was so weak to walk. But she can not remember what exactly happened. Pt lives alone. When I saw pt in the ER, daughter stayed with her in her room. As per daughter, pt's mental status is not at her normal status. But she denied headache, dizziness, shortness of breath, abdominal pain, diarrhea, fever, chills, dysuria, or changes in vision. Denies recent travel or sick contact. As per ER physician Dr. Avina, "she is on baclofen as well as cyclobenzaprine and took 3 muscle relaxers yesterday evening for back spasms" In the ER, CT of the head, abdomen and pelvis negative for acute changes. 01/15 This morning patient told me that she feels probable. She had nausea and vomiting. But patient white blood cells went down. Afebrile. Her blood pressure is not well controlled. She had one episode of SVT last night. 01/16 Today patient is a fine and denies medical complaints. No n/v/d. No fever/chills. BP is not well controlled. I initiated amlodipine and metoprolol for her. Other vital signs are stable and acceptable. PT recommended SNF or rehab. I will discharge this patient to a facility. Patient needs to follow with PCP, cardiology and neurology. I advised the patient not to take a too much muscle relaxers and narcotics. Repeat CBC and electrolytes in 3 days. Call PCP for medical issues. Discharge diagnosis: AMS Time Spent with Patient Time attestation: Total time spent providing and/or coordinating discharge services: EXAM Constitutional Vitals: Temp Pulse Resp BP Pulse Ox 98.1 F 71 18 160/69 93 01/17/20 07:57 01/17/20 07:57 01/17/20 07:57 01/17/20 07:57 01/17/20 07:57 Additional findings Additional findings: General - No acute distress Eyes - PERRLA, EOM intact ENT no rhinorrhea, no noticeable or palpable swelling, no redness or rash around throat or on face Neck supple, no JVD, no thyromegaly Respiratory: Lungs -clear, no wheezing or crackles. Cardiovascular - RRR no m/r/g, GI - Normal bowel sounds, no distended, soft, diffusely mild to moderate tenderness. Extremeties - No edema, cyanosis or clubbing Hemo/lymphatic/immune no lymphadenopathy Neurological awake and oriented x 3, no focal neurological deficits. Psychiatry flat affect Discharge Data Data Completed and Pending Labs on day of discharge: Labs from last 24 hours 01/17/20 01/17/20 06:47 06:47 WBC 11.4 H RBC 4.43 Hgb 10.7 L Hct 34.5 MCV 77.9 L MCH 24.2 L MCHC 31.0 RDW 16.8 H Plt Count 395 MPV 9.5 Gran % 69.9 Lymph % (Auto) 15.6 [place] % (Auto) 9.7 Eos % (Auto) 4.4 Baso % (Auto) 0.4 Gran # 7.99 Lymph # (Auto) 1.78 [place] # (Auto) 1.11 H Eos # (Auto) 0.50 Baso # (Auto) 0.05 Sodium 137 Potassium 3.3 Chloride 101 Carbon Dioxide 23 Anion Gap 13.0 BUN 8 Creatinine 0.5 L GFR Calculation 93 Glucose 108 H Calcium 8.5 L Total Bilirubin 0.2 AST 21 ALT 21 Alkaline Phosphatase 65 Total Protein 6.4 Albumin 3.0 L Globulin 3.4 Albumin/Globulin Ratio 0.9 L Discharge Plan Patient/Caregiver Discharge Instructions Activity: increase activity as tolerated Diet: Consistent Carbohydrate Prescriptions: New amlodipine 5 mg Tablet 5 mg PO DAILY Qty: 30 RF: 0 docusate sodium 100 mg Capsule 100 mg PO BID Qty: 30 RF: 0 metoprolol succinate 25 mg Tablet Extended Release 24 Hr 12.5 mg PO DAILY Qty: 30 RF: 0 Continued ropinirole 0.5 mg tablet 0.5 mg PO .COMPLEX Qty: 150 RF: 3 ferrous sulfate 325 mg (65 mg iron) tablet 325 mg PO QDAY Qty: 30 RF: 0 triamcinolone acetonide 0.5 % ointment 1 applic TOPICAL BID Qty: 15 RF: 1 omeprazole 40 mg capsule,delayed release 40 mg capsule,delayed release(DR/EC) 40 mg PO QDAY Qty: 90 RF: 4 sertraline 50 mg tablet 50 mg PO QDAY Qty: 90 RF: 0 leflunomide 10 mg tablet See Rx Instructions .ROUTE .COMPLEX Qty: 60 RF: 3 Discontinued hydrocodone-acetaminophen 5-325 mg tablet 1 tab PO Q6H PRN (Reason: pain) Qty: 120 RF: 0 pregabalin [Lyrica] 25 mg capsule 25 mg PO BID Qty: 60 RF: 0 baclofen 10 mg tablet 10 mg PO BID PRN (Reason: muscle pain) Qty: 60 RF: 2 cyclobenzaprine 10 mg tablet 10 mg PO TID PRN (Reason: muscle spasm) Qty: 20 RF: 0 Other Ambulatory Orders: Complete Blood Count (Routine) Timeframe: 3 Days Facility: [facility] - Location: Laboratory Ordered By: Kalie Montemayor Comprehensive Metabolic Panel (Routine) Timeframe: 3 Days Facility: [facility] - Location: Laboratory Ordered By: Kalie Montemayor Magnesium (Routine) Timeframe: 3 Days Facility: [facility] - Location: Laboratory Ordered By: Kalie Montemayor Follow Up Plan Follow up with: Christy Tovar ARNP [Primary Care Provider] - Unknown [Outside] (F/u with pcp in 3 days, cardiology and neurology in one week. ) Patient Disposition: Xfer SNF Prognosis: Fair Rehab Potential: Fair I certify that the patient requires SNF services: Yes Discharge Orders: Discharge Order (Routine); Ordered 01/17/20 Ordered By: Kalie Montemayor QUALITY VTE Deep Vein Thrombosis/Pulmonary Embolism Present on Admission: No
[2020-01-17] MEDS ORDERED: amLODIPine 5 MG TABLET PO ONE (11:15)
[2020-01-17] MEDS ORDERED: chlordiazePOXIDE 25 MG CAPSULE PO PRN (16:05)
[2020-01-17] MEDS ORDERED: PNEUMOCOCCAL 23-VAL P-SAC VAC 0.5 ML SYRINGE IM ONE (17:39)
[2020-01-18] MEDS ORDERED: amLODIPine 5 MG TABLET PO SCH (09:00)
== END 2020-01-17 18:30 ==
LOC: ED 08:20 → MEDSUR 08:20
PROVIDERS: ADMIT Internal Medicine; ATTEND Internal Medicine

== ENCOUNTER 2022-09-01 13:16 | Inpatient (IN) ==
[2022-09-01] MEDS ORDERED: IOPAMIDOL 100 ML BOTTLE IV ONE (13:17)
--- NOTE | 2022-09-01 14:40 | Emergency Department Note ---
HPI General Chief complaint: Nausea/Vomiting/Diarrhea Stated complaint: N/V Time Seen by Provider: 09/01/22 14:35 Source: patient Mode of arrival: wheelchair Limitations: no limitations History of Present Illness HPI Narrative: Narrative: Patient is an 81-year-old female with a history of atrial fibrillation and IBS who presents to the emergency department due to nausea and vomiting. She states that she has had nausea and vomiting for approximately 6 days. She states that she has not really been able to keep much food down. She states that she has had burning epigastric pain during this period of time. She states that she has not had a bowel movement for 2 days, and that she has not been passing gas eit her. She states that she is concerned about a blockage. She also endorses decreased frequency of urination. She denies any other symptoms at this time. Related Data Previous Rx's Medication Instructions Recorded duloxetine 30 mg capsule,delayed 30 mg PO QDAY #30 caps 01/27/22 release hydrocodone 5 mg-acetaminophen 325 1 tab PO Q6H PRN pain #120 tabs 06/15/22 mg tablet ropinirole 0.5 mg tablet See Rx Instructions .Route 06/15/22 .COMPLEX #150 tabs omeprazole 40 mg capsule,delayed 40 mg PO BID #60 caps 06/24/22 release adalimumab 40 mg/0.4 mL 40 mg (0.4 mL) subcut Q14D #2 ea 08/24/22 subcutaneous pen kit (Humira(CF) Pen) Allergies Allergy/AdvReac Type Severity Reaction Status Date / Time No Known Drug Allergies Allergy Verified 09/01/22 13:19 Review of Systems ROS ROS Narrative: Narrative: Constitutional: Denies fever or weakness Eyes: Denies eye pain or vision change ENT ED: Denies throat pain or rhinorrhea Cardiovascular: Denies chest pain, dyspnea on exertion, orthopnea or edema Respiratory: Denies shortness of breath or cough Gastrointestinal: Reports abdominal pain, nausea, vomiting and constipation; Denies diarrhea, hematochezia or melena Genitourinary: Reports frequency; Denies dysuria Musculoskeletal: Denies back pain or myalgia Integumentary: Denies rash or lesions Neurological: Denies headache, weakness, numbness, confusion, abnormal gait or dizziness [facility] Narrative Patient History Narrative: Narrative: Medical/Surgical/Family History All Active Problems (Updated 09/13/22 @ 16:45 by Ryan Villareal MD) SBO (small bowel obstruction) (Acute) Incisional hernia (Acute) Small bowel obstruction (Acute) High risk medication use (Acute) Hallux flexus of right foot (Acute) Rheumatoid arthritis (Chronic) Osteoarthritis (Chronic) Back pain (Chronic) Rhinitis (Chronic) Rheumatic fever (Chronic) Depression (Chronic) Thyroiditis (Chronic) Atrial fibrillation (Chronic) IBS (irritable bowel syndrome) (Chronic) Hiatal hernia (Chronic) Vertigo (Chronic) PMR (polymyalgia rheumatica) (Chronic) Lumbar spondylosis (Chronic) Basal cell carcinoma (Chronic) Ankylosing spondylitis (Acute) Joint pain (Chronic) Joint stiffness (Chronic) Seasonal allergies (Chronic) Body aches (Chronic) Fatigue (Chronic) Anxiety (Chronic) Knee pain (Chronic) Chronic pain syndrome (Chronic) Excessive sweating (Chronic) Other terminal carman (current) drug therapy (Chronic) Inflammatory arthritis (Acute) Polyarthralgia (Acute) Encounter for long-term (current) use of high-risk medication (Chronic) Osteoarthritis of carpometacarpal joint of right thumb (Acute) HLA B27 (HLA B27 positive) (Acute) Left knee pain (Acute) Restless leg syndrome (Chronic) Anemia (Acute) Weakness (Acute) Acute costochondritis (Acute) Pneumonia (Acute) Rib pain (Acute) Altered mental status (Acute) Leukocytosis (Acute) Hiatal hernia (Acute) Nausea (Acute) Rheumatoid arthritis involving both hands with positive rheumatoid factor (Acute) Scoliosis (Acute) URI (upper respiratory infection) (Acute) Nausea (Acute) Iron deficiency (Acute) Chronic allergic rhinitis (Acute) Tinnitus (Acute) Ankle sprain (Acute) Constipation (Acute) Seborrheic keratosis (Acute) Rib pain on right side (Acute) Medical History (Updated 09/13/22 @ 16:45 by Ryan Villareal MD) Ankylosing spondylitis Anxiety Atrial fibrillation Back pain Basal cell carcinoma Body aches Chronic pain syndrome Depression Encounter for long-term (current) use of high-risk medication Encounter for wheelchair assessment Excessive sweating Fatigue Hiatal hernia History of echocardiogram (~12/2011) History of EKG (~08/2008) IBS (irritable bowel syndrome) Inflammatory arthritis Joint pain Joint stiffness Knee pain Left knee pain Lumbar spondylosis Normal CT scan of head (~12/2011) Osteoarthritis Other terminal carman (current) drug therapy PMR (polymyalgia rheumatica) Polyarthralgia Rheumatic fever Rheumatoid arthritis Rhinitis Screening mammogram, encounter for (~12/2011) Seasonal allergies Thyroiditis Vertigo Surgical History History of colonoscopy (~10/2010) History of knee surgery History of partial colectomy Family History Father Arthritis Mother Hypertension Social History Smoking Status: Never smoker Alcohol Intake Frequency: does not drink Exam Narrative Narrative: Narrative: General Limitations: no limitations General appearance: Present alert and in no apparent distress; Absent anxious, appears intoxicated or sleepy Head Head: Present atraumatic and normocephalic Eye Eye: Present EOMI; Absent scleral icterus or nystagmus ENT ENT: Present mucous membranes moist; Absent nasal congestion Neck Neck: Present full ROM and trachea midline Chest Chest: Present normal inspection and symmetric chest wall rise; Absent tenderness Respiratory Respiratory: Present normal lung sounds bilaterally; Absent respiratory distress, rales/crackles, wheezes, stridor or accessory muscle use Cardiovascular Cardiovascular: Present regular rate, normal rhythm and normal heart sounds Adbominal Abdominal: Present soft, tenderness, guarding and normal bowel sounds; Absent distention, rebound or rigidity Extremities Extremities: Present normal inspection and full ROM; Absent tenderness, pedal edema or pretibial edema Back Back: Present normal inspection and full ROM Neurological Neurological: Present alert and oriented X3 Psychiatric Psychiatric: Present normal affect and normal mood Skin Skin: Present warm (WNL), dry and normal color Course Vital Signs Vital signs: Vital Signs Temperature 97.0 F 09/01/22 13:17 Pulse Rate 75 09/01/22 13:17 Respiratory Rate 18 09/01/22 13:17 Blood Pressure 112/69 09/01/22 13:17 Pulse Oximetry (%) 96 09/01/22 13:17 Oxygen Delivery Method Room Air 09/01/22 13:17 Temperature 97.9 F 09/05/22 12:32 Pulse Rate 67 09/05/22 12:32 Respiratory Rate 14 09/05/22 12:32 Blood Pressure 135/58 09/05/22 12:32 Pulse Oximetry (%) 95 09/05/22 12:32 Oxygen Delivery Method Room Air 09/05/22 12:32 Oxygen Flow Rate (L/min) 2 09/03/22 04:47 MDM MDM Narrative Medical decision making narrative: Narrative: Patient is an 81-year-old female with a history of atrial fibrillation and IBS who presents to the emergency department due to nausea and vomiting. Differential diagnoses include pancreatitis, gastritis, peptic ulcer disease, and small bowel obstruction. Patient's labs demonstrate leukocytosis. Imaging demonstrates a small bowel obstruction. I have spoken with Dr. Espinal regarding admission and he has agreed to see and evaluate patient for admission. Lab Data 09/03/22 06:38 09/03/22 06:38 Labs: Lab Results 09/01/22 09/01/22 09/01/22 Range/Units 15:40 15:40 15:51 WBC 13.8 H (4.5-11.0) K/mcL RBC 5.16 (3.59-5.38) M/mcL Hgb 14.8 (11.2-15.7) g/dL Hct 44.2 (34.1-44.9) % POC Hct 47.0 (36-48) MCV 85.7 (80.0-100.0) fL MCH 28.7 (26.0-34.0) pg MCHC 33.5 (31.0-36.0) g/dL RDW 13.7 (11.5-14.5) % Plt Count 409 (140-440) K/mcL MPV 10.5 (8.8-12.5) fL Immature Gran % (Auto) 0.4 (0.0-0.5) % Neut % (Auto) 63.9 (38.0-78.0) % Lymph % (Auto) 23.1 (15.5-49.0) % [place] % (Auto) 10.2 (1.0-12.0) % Eos % (Auto) 2.0 (0.0-7.0) % Baso % (Auto) 0.4 (0.0-2.0) % Lymph # (Auto) 3.19 (1.50-4.80) K/mcL [place] # (Auto) 1.41 H (0.10-0.90) K/mcL Eos # (Auto) 0.27 (0.00-0.70) K/mcL Baso # (Auto) 0.05 (0.00-0.30) K/mcL Immature Gran # 0.06 H (0.00-0.05) K/mcl Absolute Neutrophils 8.83 H (1.80-8.00) K/mcL POC VBG pH (7.32-7.42) POC VBG pCO2 at Temp (41-51) POC VBG pO2 (25-40) POC VBG HCO3 (24-28) POC VBG Total CO2 (25-29) POC Venous O2 Sat (40-70) POC VBG Base Excess (-2-2) VBG Lactic Acid (0.5-2) POC Sodium 137 (133-145) POC Potassium 2.9 L* (3.3-5.1) POC Chloride 100 (96-108) POC Total CO2 24.0 (22-30) POC BUN 22 H (6-20) POC Creatinine 0.7 (0.6-1.2) POC Glucose 94 (70-105) POC WB Ioniz Calcium 1.10 L (1.16-1.32) Total Bilirubin 0.7 (0.1-1.0) mg/dL Direct Bilirubin 0.2 (<0.3) mg/dL AST 24 (<32) U/L ALT 52 H (<40) U/L Alkaline Phosphatase 70 (39-117) U/L Total Protein 7.0 (5.9-8.4) gm/dL Albumin 4.0 (3.2-5.2) gm/dL Globulin 3.0 (2.2-3.7) gm/dL Lipase 20 (7-60) U/L POC Troponin I (0.00-0.08) 09/01/22 09/01/22 Range/Units 15:57 17:38 WBC (4.5-11.0) K/mcL RBC (3.59-5.38) M/mcL Hgb (11.2-15.7) g/dL Hct (34.1-44.9) % POC Hct (36-48) MCV (80.0-100.0) fL MCH (26.0-34.0) pg MCHC (31.0-36.0) g/dL RDW (11.5-14.5) % Plt Count (140-440) K/mcL MPV (8.8-12.5) fL Immature Gran % (Auto) (0.0-0.5) % Neut % (Auto) (38.0-78.0) % Lymph % (Auto) (15.5-49.0) % [place] % (Auto) (1.0-12.0) % Eos % (Auto) (0.0-7.0) % Baso % (Auto) (0.0-2.0) % Lymph # (Auto) (1.50-4.80) K/mcL [place] # (Auto) (0.10-0.90) K/mcL Eos # (Auto) (0.00-0.70) K/mcL Baso # (Auto) (0.00-0.30) K/mcL Immature Gran # (0.00-0.05) K/mcl Absolute Neutrophils (1.80-8.00) K/mcL POC VBG pH 7.40 (7.32-7.42) POC VBG pCO2 at Temp 37.1 L (41-51) POC VBG pO2 29 (25-40) POC VBG HCO3 22.9 L (24-28) POC VBG Total CO2 24.0 L (25-29) POC Venous O2 Sat 57.0 (40-70) POC VBG Base Excess -2.0 (-2-2) VBG Lactic Acid 1.0 (0.5-2) POC Sodium (133-145) POC Potassium (3.3-5.1) POC Chloride (96-108) POC Total CO2 (22-30) POC BUN (6-20) POC Creatinine (0.6-1.2) POC Glucose (70-105) POC WB Ioniz Calcium (1.16-1.32) Total Bilirubin (0.1-1.0) mg/dL Direct Bilirubin (<0.3) mg/dL AST (<32) U/L ALT (<40) U/L Alkaline Phosphatase (39-117) U/L Total Protein (5.9-8.4) gm/dL Albumin (3.2-5.2) gm/dL Globulin (2.2-3.7) gm/dL Lipase (7-60) U/L POC Troponin I 0.07 (0.00-0.08) EKG Data EKG #1: EKG attestation: Yes I reviewed and interpreted this EKG. EKG results narrative: Normal sinus rhythm with a rate of 80, left axis deviation, MO 174, QRS of 147, QTc of 551, T wave inversions in leads I and aVL, T wave flattening in lead II, ST elevation and leads III, aVF, V1, V2, V3, and aVL, ST depression in leads I and aVL, not meeting criteria for ST elevation IA due to left bundle branch block and not meeting Sgarbossa's criteria. Discharge Plan Patient/Caregiver Discharge Instructions Pt seen by MILL PLATFORM SUPERVISOR/PA only: No Clinical Impression: SBO (small bowel obstruction) Activity: increase activity as tolerated Patient Disposition: Xfer As Inpt ([facility]) Condition: Good Discharge Date/Time: 09/01/22 21:54
[2022-09-01] MEDS ORDERED: 0.9 % SODIUM CHLORIDE 1,000 ML IV ONE (15:03)
[2022-09-01 15:56] LABS: POC Calcium, Ionized 1.1 (1.16-1.32); POC Creatinine 0.7 (0.6-1.2); POC Potassium 2.9 (3.3-5.1)
[2022-09-01 16:25] LABS: Basophils # (Auto) 0.05 K/mcL (0.00-0.30); Basophils % (Auto) 0.4 % (0.0-2.0); Eosinophils # (Auto) 0.27 K/mcL (0.00-0.70); Hematocrit 44.2 % (34.1-44.9); Hemoglobin 14.8 g/dL (11.2-15.7); Lymphocytes # (Auto) 3.19 K/mcL (1.50-4.80); Lymphocytes % (Auto) 23.1 % (15.5-49.0); Mean Cell Volume 85.7 fL (80.0-100.0); Mean Corpuscular HGB Conc 33.5 g/dL (31.0-36.0); Mean Platelet Volume 10.5 fL (8.8-12.5); Monocytes # (Auto) 1.41 K/mcL (0.10-0.90); Monocytes % (Auto) 10.2 % (1.0-12.0); Neutrophils % (Auto) 63.9 % (38.0-78.0); Platelet Count 409 K/mcL (140-440); RBC 5.16 M/mcL (3.59-5.38); Red Cell Distribution Width 13.7 % (11.5-14.5); WBC 13.8 K/mcL (4.5-11.0)
[2022-09-01 16:47] LABS: ALT/SGPT 52 U/L (<40); AST/SGOT 24 U/L (<32); Alkaline Phosphatase 70 U/L (39-117); Bilirubin,Direct 0.2 mg/dL (<0.3); Bilirubin,Total 0.7 mg/dL (0.1-1.0)
--- NOTE | 2022-09-01 17:15 | Cat Scan Report ---
INDICATION: Abd pain/tenderness, concern for sbo COMPARISON: Previous CT scan dated 01/15/2020 TECHNIQUE: Axial images were obtained through the abdomen and pelvis. Sagittally and coronally reformatted images. 80 mL Isovue 370 injected intravenously. Oral contrast material was not administered FINDINGS: Lung bases:Negative. No pulmonary parenchymal nodule. No pleural fluid or pericardial fluid There is a large hiatal hernia, unchanged. Liver:Findings consistent with hepatic steatosis. No focal mass. Gallbladder, bilary:No calcified gallstones. No gallbladder wall thickening. No dilated intra or extrahepatic bile ducts. Spleen:No splenomegaly. Normal enhancement of splenic and portal veins. Pancreas:No pancreatic mass. No peripancreatic abnormality Adrenal glands:Negative Kidneys,ureters,bladder:No solid renal mass. No hydronephrosis. No obstructing or nonobstructing calculi. No hydroureter. No ureteral calculus. No bladder stone. No detectable bladder mass. Gastrointestinal:Previous partial colectomy. There is sigmoid colon diverticulosis. No diverticulitis. There is an enterocolonic anastomosis in the right upper quadrant. Mechanical small bowel obstruction with dilated jejunum and part of the ileum. Jejunum measures 4.5 cm in cross-sectional diameter. There is a right para umbilical abdominal wall hernia. This was present previously and contained only fat. There is now incarcerated small bowel. Hernia defect measures 2.5 cm in mediolateral diameter and 2.8 cm in craniocaudal diameter no evidence for bowel ischemia or infarction. No focal fluid collection. Large hiatal hernia with much of the stomach and intrathoracic location. Appendix: The appendix is removed Vascular:Negative abdominal aorta. Superior mesenteric artery and celiac trunk are normal. Normal opacification of the inferior mesenteric artery. There is calcification of the abdominal aorta. There is no abdominal aortic aneurysm Lymphatic:No retroperitoneal or mesenteric adenopathy Mesentery, peritoneum: No free intraperitoneal fluid. No mesenteric or retroperitoneal mass. No intra-abdominal abscess. Reproductive:Uterus is not identified consistent with hysterectomy. No adnexal mass Musculoskeletal:Severe degenerative disc disease in the lower lumbar spine. No acute lumbar compression fractures. Sacrum and pelvis are negative There are multiple small anterior abdominal wall hernias. These may be from prior surgeries. Incarcerated right para umbilical hernia as described above. Other small hernias containing only mesenteric fat IMPRESSION: 1. Mechanical small bowel obstruction secondary to a right periumbilical incarcerated hernia. Hernia was present previously but containing only fat at that time 2. Previous enteral colonic anastomosis. Sigmoid colon diverticulosis without diverticulitis 3. Atherosclerotic calcification of the abdominal aorta. No abdominal aortic aneurysm 4. Large hiatal hernia 5. Probable hepatic steatosis. The exam was performed using radiation dose optimization techniques including, but not limited to, automated exposure control, adjustment of the mA and/or kV according to patient size and use of iterative reconstruction technique. Interpreted and Authenticated by: Mariano Rouse 09/01/22
[2022-09-01] MEDS ORDERED: POTASSIUM CHLORIDE 20 MEQ in DEXTROSE 5% IN WATER 250 ML IV ONE (18:18)
--- NOTE | 2022-09-01 19:28 | General Surg History&Physical ---
HPI History of Present Illness Patient information: Note initiated : 09/01/22 at 7:22 pm Service Date, if different from initiated Date: [] Patient: Latoya Delgado a 81 y/o F admitted on for N/V. Chief Complaint: [] Chief complaint: nausea and emisis History of present illness: Ms. Delgado is a 81 year old F with a h/o colectomy, presents with 6 day c/o nausea and emisis with decreased bm last 2 days. presented to ED where work up shows sbo from incisional hernia. Patient did not report hernia in past, she has no abdominal pain. I was asked to see patient for admission. Review of Systems Review of systems: all systems reviewed negative other than above. PFSH PFSH All Active Problems (Updated 09/01/22 @ 19:27 by Eric Espinal MD) Incisional hernia (Acute) Small bowel obstruction (Acute) High risk medication use (Acute) Hallux flexus of right foot (Acute) Rheumatoid arthritis (Chronic) Osteoarthritis (Chronic) Back pain (Chronic) Rhinitis (Chronic) Rheumatic fever (Chronic) Depression (Chronic) Thyroiditis (Chronic) Atrial fibrillation (Chronic) IBS (irritable bowel syndrome) (Chronic) Hiatal hernia (Chronic) Vertigo (Chronic) PMR (polymyalgia rheumatica) (Chronic) Lumbar spondylosis (Chronic) Basal cell carcinoma (Chronic) Ankylosing spondylitis (Acute) Joint pain (Chronic) Joint stiffness (Chronic) Seasonal allergies (Chronic) Body aches (Chronic) Fatigue (Chronic) Anxiety (Chronic) Knee pain (Chronic) Chronic pain syndrome (Chronic) Excessive sweating (Chronic) Other 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 waste division supervisor (current) drug therapy (Chronic) Inflammatory arthritis (Acute) Polyarthralgia (Acute) Encounter for long-term (current) use of high-risk medication (Chronic) Osteoarthritis of carpometacarpal joint of right thumb (Acute) HLA B27 (HLA B27 positive) (Acute) Left knee pain (Acute) Restless leg syndrome (Chronic) Anemia (Acute) Weakness (Acute) Acute costochondritis (Acute) Pneumonia (Acute) Rib pain (Acute) Altered mental status (Acute) Leukocytosis (Acute) Hiatal hernia (Acute) Nausea (Acute) Rheumatoid arthritis involving both hands with positive rheumatoid factor (Acute) Scoliosis (Acute) URI (upper respiratory infection) (Acute) Nausea (Acute) Iron deficiency (Acute) Chronic allergic rhinitis (Acute) Tinnitus (Acute) Ankle sprain (Acute) Constipation (Acute) Seborrheic keratosis (Acute) Rib pain on right side (Acute) Medical History (Updated 09/01/22 @ 19:27 by Eric Espinal MD) Ankylosing spondylitis Anxiety Atrial fibrillation Back pain Basal cell carcinoma Body aches Chronic pain syndrome Depression Encounter for long-term (current) use of high-risk medication Encounter for wheelchair assessment Excessive sweating Fatigue Hiatal hernia History of echocardiogram (~12/2011) History of EKG (~08/2008) IBS (irritable bowel syndrome) Inflammatory arthritis Joint pain Joint stiffness Knee pain Left knee pain Lumbar spondylosis Normal CT scan of head (~12/2011) Osteoarthritis Other solid waste division supervisor (current) drug therapy PMR (polymyalgia rheumatica) Polyarthralgia Rheumatic fever Rheumatoid arthritis Rhinitis Screening mammogram, encounter for (~12/2011) Seasonal allergies Thyroiditis Vertigo Surgical History History of colonoscopy (~10/2010) History of knee surgery History of partial colectomy Family History Father Arthritis Mother Hypertension Social History marital status: smoking status: Never smoker alcohol intake frequency: does not drink MEDS/ALLERGIES Home Medications and Allergies Home Medications Medication Instructions Recorded Confirmed Type fluticasone propionate 50 1 spray intranasal BID #16 grams 11/06/21 07/15/22 Rx mcg/actuation nasal spray,suspension (Flonase Allergy Relief) duloxetine 30 mg capsule,delayed 30 mg PO QDAY #30 caps 01/27/22 07/15/22 Rx release hydrocodone 5 mg-acetaminophen 325 1 tab PO Q6H PRN pain #120 tabs 06/15/22 07/15/22 Rx mg tablet ropinirole 0.5 mg tablet See Rx Instructions .Route 06/15/22 07/15/22 Rx .COMPLEX #150 tabs omeprazole 40 mg capsule,delayed 40 mg PO BID #60 caps 06/24/22 07/15/22 Rx release adalimumab 40 mg/0.4 mL 40 mg (0.4 mL) subcut Q14D #2 ea 08/24/22 08/24/22 Rx subcutaneous pen kit (Humira(CF) Pen) Allergies Allergy/AdvReac Type Severity Reaction Status Date / Time No Known Drug Allergies Allergy Verified 09/01/22 13:19 Physical Examination Vital Signs Vital signs: Temp Pulse Resp BP Pulse Ox O2 Del Method 97.0 F 72 17 131/57 97 Room Air 09/01/22 13:17 09/01/22 19:11 09/01/22 19:11 09/01/22 18:31 09/01/22 19:11 09/01/22 13:17 General physical appearance General physical exam: well developed, well nourished and no distress Eyes Eye exam: PERRL and normal ocular movement ENT ENT exam: normal pinna, normal nares, normal mucosa, no hearing loss and no congestion Head Head exam IM: Present atraumatic and normocephalic Neck Neck exam: no masses, no bruits, trachea midline, no lymphadenopathy and no hilario ous distension Cardiovascular Cardiovascular exam IM: Present normal rate and rhythm Respiratory Respiratory exam: normal expansion, normal respiratory effort, clear to percussion and clear to auscultation Abdomen Abdomen: Present soft, non tender, bowel sounds and surgical scars Hernia: Present none and incisional (palpable hernia, non tender) Genitourinary Genitourinary (Female): Present normal external genitalia Rectum Rectum: Present normal sphincter tone, no hemorrhoids, no tenderness, no masses and no bleeding Integumentary Integumentary: Present no rash, no growths and no abnormal pigmentation Neurologic Neurologic: Present normal coordination and normal sensation Musculoskeletal Musculoskeletal: Present normal gait and normal posture Psychiatric Psychiatric: Present oriented to time, oriented to person, oriented to place, speech is normal and memory intact Results Labs 09/01/22 15:40 Labs: Abnormal lab results 09/01/22 09/01/22 09/01/22 Range/Units 15:40 15:40 15:51 WBC 13.8 H (4.5-11.0) K/mcL [place] # (Auto) 1.41 H (0.10-0.90) K/mcL Immature Gran # 0.06 H (0.00-0.05) K/mcl Absolute Neutrophils 8.83 H (1.80-8.00) K/mcL POC VBG pCO2 at Temp (41-51) POC VBG HCO3 (24-28) POC VBG Total CO2 (25-29) POC Potassium 2.9 L* (3.3-5.1) POC BUN 22 H (6-20) POC WB Ioniz Calcium 1.10 L (1.16-1.32) ALT 52 H (<40) U/L 09/01/22 Range/Units 17:38 WBC (4.5-11.0) K/mcL [place] # (Auto) (0.10-0.90) K/mcL Immature Gran # (0.00-0.05) K/mcl Absolute Neutrophils (1.80-8.00) K/mcL POC VBG pCO2 at Temp 37.1 L (41-51) POC VBG HCO3 22.9 L (24-28) POC VBG Total CO2 24.0 L (25-29) POC Potassium (3.3-5.1) POC BUN (6-20) POC WB Ioniz Calcium (1.16-1.32) ALT (<40) U/L Diabetes panel 09/01/22 Range/Units 15:40 AST 24 (<32) U/L ALT 52 H (<40) U/L Alkaline Phosphatase 70 (39-117) U/L Total Protein 7.0 (5.9-8.4) gm/dL Albumin 4.0 (3.2-5.2) gm/dL Calcium panel 09/01/22 Range/Units 15:40 Albumin 4.0 (3.2-5.2) gm/dL Adrenal panel 09/01/22 Range/Units 15:40 Total Bilirubin 0.7 (0.1-1.0) mg/dL AST 24 (<32) U/L ALT 52 H (<40) U/L Alkaline Phosphatase 70 (39-117) U/L Total Protein 7.0 (5.9-8.4) gm/dL Albumin 4.0 (3.2-5.2) gm/dL All other labs normal. Imaging CT scan - abdomen: image reviewed A/P Assessment and plan (1) Small bowel obstruction: Status: Acute (2) Incisional hernia: Status: Acute Plan sbo secondary to incarcerated incision hernia, no evidence of strangulation. Plan: NPO NGT follow exam. Time Spent With Patient Time: Total time spent is greater than 50% in coordination of care (as documented) at patient's floor/unit and/or counseling patient:
--- NOTE | 2022-09-01 20:38 | XRay Report ---
INDICATION: NG placement TECHNIQUE: Supine abdomen. COMPARISON: Previous CT scan dated 09/01/2022 FINDINGS:Esophagogastric tube is deflected cephalad at the level of the diaphragm. This is consistent with positioning with in this patient's large hiatal hernia. IMPRESSION: Esophagogastric tube is deflected cephalad within the large hiatal hernia Interpreted and Authenticated by: Mariano Rouse 09/01/22
[2022-09-01] MEDS: DEXTROSE 5%-1/2NS 1,000 ML IV SCH (20:55)
[2022-09-01] MEDS: ONDANSETRON 4 MG/2 ML VIAL IV PRN (21:08)
[2022-09-01] MEDS: HYDROmorphone 0.5 MG/0.5 ML SYRINGE IV PRN ×2 (21:09→23:25)
--- NOTE | 2022-09-01 21:11 | Internal Med History&Physical ---
HPI History of Present Illness Patient information: Note initiated : 09/01/22 at 9:07 pm Service Date, if different from initiated Date: [] Patient: Latoya Delgado a 81 y/o F admitted on for N/V. Chief Complaint: [] History of present illness: Ms. Delgado is a 81 year old F Presents to the ED from the PCP office for abdominal pain and choledocholithiasis. Patient was diagnosed with choledocholithiasis at an outside facility and was recommended surgery but the patient gets all of his procedures done here at [facility] and decided come here instead. Work-up revealed choledocholithiasis severe abdominal pain. He has had nausea but no vomiting. No constipation. Complaints of dark cola colored urine. Patient denies any fevers or chills. He states abdominal pain is crampy and intermittent. Right quadrants both lower and upper but mostly upper. Made worse by eating and improving by fasting. In the ED he did have an MRCP which did show choledocholithiasis. Elevated transaminitis and hyperbilirubinemia. Dr. Baer was contacted who will perform ERCP and thus hospitalist admission was requested. Case also sofiya with Dr. Espinal felt the patient likely need eventual cholecystectomy. Review of Systems: Pertinent positives above. Denies headache/fever/chills/nausea/vomiting/chest pain/cough/dyspnea/diarrhea. Remaining 10 point review of system reviewed negative PHYSICAL EXAM General: Alert, Awake, No acute Distress, obese Eyes/N/T: EOMI, Scleral icterus, PERRL, dry MM Head/Neck: neck supple, full ROM, normocephalic atraumatic CV: RRR, No murmurs, normal s1/s2 Pulm: Clear b/l, no wheezing/rhonchi/rales, no respiratory distress Abd: soft, tender RUQ, +BS x4 Ext: no clubbing/cyanosis/edema, nontender Neuro: Alert, no focal deficits, moves all extremities, CN 2-12 grossly intact, sensations intact b/l upper/lower Psychiatric: Skin: warm/dry, normal color PFSH PFSH All Active Problems (Updated 09/01/22 @ 19:27 by Eric Espinal MD) Incisional hernia (Acute) Small bowel obstruction (Acute) High risk medication use (Acute) Hallux flexus of right foot (Acute) Rheumatoid arthritis (Chronic) Osteoarthritis (Chronic) Back pain (Chronic) Rhinitis (Chronic) Rheumatic fever (Chronic) Depression (Chronic) Thyroiditis (Chronic) Atrial fibrillation (Chronic) IBS (irritable bowel syndrome) (Chronic) Hiatal hernia (Chronic) Vertigo (Chronic) PMR (polymyalgia rheumatica) (Chronic) Lumbar spondylosis (Chronic) Basal cell carcinoma (Chronic) Ankylosing spondylitis (Acute) Joint pain (Chronic) Joint stiffness (Chronic) Seasonal allergies (Chronic) Body aches (Chronic) Fatigue (Chronic) Anxiety (Chronic) Knee pain (Chronic) Chronic pain syndrome (Chronic) Excessive sweating (Chronic) 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) Inflammatory arthritis (Acute) Polyarthralgia (Acute) Encounter for long-term (current) use of high-risk medication (Chronic) Osteoarthritis of carpometacarpal joint of right thumb (Acute) HLA B27 (HLA B27 positive) (Acute) Left knee pain (Acute) Restless leg syndrome (Chronic) Anemia (Acute) Weakness (Acute) Acute costochondritis (Acute) Pneumonia (Acute) Rib pain (Acute) Altered mental status (Acute) Leukocytosis (Acute) Hiatal hernia (Acute) Nausea (Acute) Rheumatoid arthritis involving both hands with positive rheumatoid factor (Acute) Scoliosis (Acute) URI (upper respiratory infection) (Acute) Nausea (Acute) Iron deficiency (Acute) Chronic allergic rhinitis (Acute) Tinnitus (Acute) Ankle sprain (Acute) Constipation (Acute) Seborrheic keratosis (Acute) Rib pain on right side (Acute) Medical History (Updated 09/01/22 @ 19:27 by Eric Espinal MD) Ankylosing spondylitis Anxiety Atrial fibrillation Back pain Basal cell carcinoma Body aches Chronic pain syndrome Depression Encounter for long-term (current) use of high-risk medication Encounter for wheelchair assessment Excessive sweating Fatigue Hiatal hernia History of echocardiogram (~12/2011) History of EKG (~08/2008) IBS (irritable bowel syndrome) Inflammatory arthritis Joint pain Joint stiffness Knee pain Left knee pain Lumbar spondylosis Normal CT scan of head (~12/2011) Osteoarthritis Other tank 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 (current) 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 therapy PMR (polymyalgia rheumatica) Polyarthralgia Rheumatic fever Rheumatoid arthritis Rhinitis Screening mammogram, encounter for (~12/2011) Seasonal allergies Thyroiditis Vertigo Surgical History History of colonoscopy (~10/2010) History of knee surgery History of partial colectomy Family History Father Arthritis Mother Hypertension Social History marital status: smoking status: Never smoker alcohol intake frequency: does not drink MEDS/ALLERGIES Home Medications and Allergies Home Medications Medication Instructions Recorded Confirmed Type fluticasone propionate 50 1 spray intranasal BID #16 grams 11/06/21 07/15/22 Rx mcg/actuation nasal spray,suspension (Flonase Allergy Relief) duloxetine 30 mg capsule,delayed 30 mg PO QDAY #30 caps 01/27/22 07/15/22 Rx release hydrocodone 5 mg-acetaminophen 325 1 tab PO Q6H PRN pain #120 tabs 06/15/22 07/15/22 Rx mg tablet ropinirole 0.5 mg tablet See Rx Instructions .Route 06/15/22 07/15/22 Rx .COMPLEX #150 tabs omeprazole 40 mg capsule,delayed 40 mg PO BID #60 caps 06/24/22 07/15/22 Rx release adalimumab 40 mg/0.4 mL 40 mg (0.4 mL) subcut Q14D #2 ea 08/24/22 08/24/22 Rx subcutaneous pen kit (Humira(CF) Pen) Allergies Allergy/AdvReac Type Severity Reaction Status Date / Time No Known Drug Allergies Allergy Verified 09/01/22 13:19 EXAM Constitutional Vitals: Temp Pulse Resp BP Pulse Ox O2 Del Method 97.0 F 73 21 165/70 96 Room Air 09/01/22 13:17 09/01/22 20:31 09/01/22 20:31 09/01/22 20:31 09/01/22 20:31 09/01/22 13:17 DATA Data Completed and Pending Labs: Labs from last 24 hours 09/01/22 09/01/22 09/01/22 17:38 15:57 15:51 WBC RBC Hgb Hct POC Hct 47.0 MCV MCH MCHC RDW Plt Count MPV Immature Gran % (Auto) Neut % (Auto) Lymph % (Auto) Sierra % (Auto) Eos % (Auto) Baso % (Auto) Lymph # (Auto) Sierra # (Auto) Eos # (Auto) Baso # (Auto) Immature Gran # Absolute Neutrophils POC VBG pH 7.40 POC VBG pCO2 at Temp 37.1 L POC VBG pO2 29 POC VBG HCO3 22.9 L POC VBG Total CO2 24.0 L POC Venous O2 Sat 57.0 POC VBG Base Excess -2.0 VBG Lactic Acid 1.0 POC Sodium 137 POC Potassium 2.9 L* POC Chloride 100 POC Total CO2 24.0 POC BUN 22 H POC Creatinine 0.7 POC Glucose 94 POC WB Ioniz Calcium 1.10 L Total Bilirubin Direct Bilirubin AST ALT Alkaline Phosphatase Total Protein Albumin Globulin Lipase POC Troponin I 0.07 09/01/22 09/01/22 15:40 15:40 WBC 13.8 H RBC 5.16 Hgb 14.8 Hct 44.2 POC Hct MCV 85.7 MCH 28.7 MCHC 33.5 RDW 13.7 Plt Count 409 MPV 10.5 Immature Gran % (Auto) 0.4 Neut % (Auto) 63.9 Lymph % (Auto) 23.1 Sierra % (Auto) 10.2 Eos % (Auto) 2.0 Baso % (Auto) 0.4 Lymph # (Auto) 3.19 Sierra # (Auto) 1.41 H Eos # (Auto) 0.27 Baso # (Auto) 0.05 Immature Gran # 0.06 H Absolute Neutrophils 8.83 H POC VBG pH POC VBG pCO2 at Temp POC VBG pO2 POC VBG HCO3 POC VBG Total CO2 POC Venous O2 Sat POC VBG Base Excess VBG Lactic Acid POC Sodium POC Potassium POC Chloride POC Total CO2 POC BUN POC Creatinine POC Glucose POC WB Ioniz Calcium Total Bilirubin 0.7 Direct Bilirubin 0.2 AST 24 ALT 52 H Alkaline Phosphatase 70 Total Protein 7.0 Albumin 4.0 Globulin 3.0 Lipase 20 POC Troponin I A/P Narrative A/P Narrative: A: *Acute Choledocholithiasis: -no evidence for cholangitis as this time *Abd pain: 2/2 above *Jaundice/tea-colored urine: 2/2 biliary obstruction *Transaminitis/hyperbilirubinemia: 2/2 above *Chronic Afib: on xaralto/dilt *HTN: on ACEI * P: -IVF -NPO after midnight -pain c, antiemetics ontrol -Dr. Baer for ERCP -Dr. Espinal for eventual cholecystectomy -Monitor vital signs and for fevers -Continue acei/dilt, prn iV lopressor -Home medication reconciliation -ppx: heparin(hold for procedure), scd Time Spent With Patient Time: Total time spent is greater than 50% in coordination of care (as documented) at patient's floor/unit and/or counseling patient: Initial: Total time with patient: 55 - 74 minutes
[2022-09-01] MEDS: 0.9 % SODIUM CHLORIDE 10 ML SYRINGE IV SCH (22:37)
[2022-09-02] MEDS: HYDROmorphone 0.5 MG/0.5 ML SYRINGE IV PRN ×2 (03:16→07:55)
[2022-09-02] MEDS: DEXTROSE 5%-1/2NS 1,000 ML IV SCH ×2 (05:06→13:53)
--- NOTE | 2022-09-02 05:53 | XRay Report ---
INDICATION: NG tube placement TECHNIQUE: Supine abdomen. COMPARISON: Previous abdomen dated 09/01/20222011 FINDINGS:There is an esophagogastric tube with its tip deflected cephalad. This is within this patient's large hiatal hernia. This is unchanged from previous examination dated 09/01/20222011 IMPRESSION: Esophagogastric tube with in a large hiatal hernia Interpreted and Authenticated by: Mariano Rouse 09/02/22
[2022-09-02 07:02] LABS: Basophils # (Auto) 0.05 K/mcL (0.00-0.30); Basophils % (Auto) 0.5 % (0.0-2.0); Eosinophils % (Auto) 3.7 % (0.0-7.0); Hemoglobin 12.5 g/dL (11.2-15.7); Lymphocytes # (Auto) 2.69 K/mcL (1.50-4.80); Lymphocytes % (Auto) 25.1 % (15.5-49.0); Mean Cell Volume 90.3 fL (80.0-100.0); Mean Corpuscular HGB Conc 32.1 g/dL (31.0-36.0); Mean Platelet Volume 10.9 fL (8.8-12.5); Monocytes # (Auto) 1.22 K/mcL (0.10-0.90); Monocytes % (Auto) 11.4 % (1.0-12.0); Neutrophils % (Auto) 58.8 % (38.0-78.0); Platelet Count 363 K/mcL (140-440); RBC 4.32 M/mcL (3.59-5.38); Red Cell Distribution Width 13.9 % (11.5-14.5); WBC 10.7 K/mcL (4.5-11.0)
[2022-09-02 07:38] LABS: Blood Urea Nitrogen 15 mg/dL (8-23); Calcium 8.1 mg/dL (8.6-10.4); Carbon Dioxide 27 mmol/L (22-30); Chloride 101 mmol/L (96-108); Glomerular Filtration Rate 91; Glucose 132 mg/dL (70-105)
[2022-09-02] MEDS: 0.9 % SODIUM CHLORIDE 10 ML SYRINGE IV SCH ×3 (07:53→21:25)
[2022-09-02] MEDS: ONDANSETRON 4 MG/2 ML VIAL IV PRN ×2 (08:07→21:25)
--- NOTE | 2022-09-02 12:21 | General Surgery Progress Note ---
SUBJECTIVE Subjective Patient information: Note initiated : 09/02/22 at 12:19 pm Service Date, if different from initiated Date: [] Patient: Latoya Delgado 81 y/o F admitted on 09/01/22 for N/V. Chief Complaint: [] Principal diagnosis: Small bowel obstruction Interval history: Patient's feels about the same as she did yesterday, no flatus, no bowel movement, she continues to have no abdominal pain, no fevers chills. Patient has no further nausea or emesis. Constitutional Vitals: Vital Signs Temp Pulse Resp BP Pulse Ox O2 Del Method O2 Flow Rate 97.3 F 65 16 149/73 95 Room Air 2 09/02/22 12:00 09/02/22 11:54 09/02/22 11:54 09/02/22 11:54 09/02/22 11:54 09/02/22 11:54 09/02/22 08:03 Period Temp Pulse Resp BP Sys/Agustin Pulse Ox O2 Del Method O2 Flow Rate Last 24 Hr 97.0 F-98.8 F 56-77 13-24 112-165/57-82 92-100 Nasal Cannula- Room Air 2-2 Intake and Output 09/02/22 09/02/22 09/02/22 03:59 11:59 19:59 Intake Total 260 1000 Output Total 425 350 Balance -165 650 Weight 147 lb 8 oz Intake & Output: Intake & Output 09/02/22 09/02/22 09/02/22 03:59 11:59 19:59 Intake Total 260 1000 Output Total 425 350 Balance -165 650 Weight 147 lb 8 oz Intake: IV 260 1000 Dextrose 5%-1/2Ns IV Solution 1 1000 ,000 ml @ 125 mls/hr IV .Q8H [facility] Rx#:[id number] Potassium Chloride 20 Meq In 260 Dextrose 5% in Water 250 ml @ 130 mls/hr IV ONCE ONE Rx#: [id number] Tube Feeding 0 Output: Gastric Drainage 350 Right Nare NG/OG 350 Void Amount 75 350 Other: Urine Appearance Clear Clear Urine Color Dark Yellow Yellow Urine Odor Normal General appearance: cooperative and no acute distress GI/Abdominal GI/Abdominal exam: Present normal bowel sounds, soft and hernia; Absent distended or tenderness Additional comments: Obvious incarcerated hernia, no signs of strangulation A/P Assessment and plan (1) Incisional hernia: Status: Acute (2) Small bowel obstruction: Status: Acute Plan This is a pleasant 81-year-old female with a partial small bowel obstruction. No evidence of strangulation from her incarcerated ventral hernia. Small bowel follow-through today. Continue n.p.o., continue ambulation, continu e n.p.o. G-tube. Time Spent With Patient Time: Total time spent is greater than 50% in coordination of care (as documented) at patient's floor/unit and/or counseling patient:
[2022-09-02] MEDS ORDERED: POTASSIUM CHLORIDE 40 MEQ in DEXTROSE 5% IN WATER 500 ML IV ONE (18:13)
[2022-09-02] MEDS ORDERED: POTASSIUM CHLORIDE 20 MEQ/10 ML VIAL IV ONE (18:30)
[2022-09-02] MEDS: rOPINIRole 0.25 MG TABLET PO SCH (20:53)
[2022-09-03] MEDS: DEXTROSE 5%-1/2NS 1,000 ML IV SCH ×2 (02:53→08:29)
[2022-09-03] MEDS: 0.9 % SODIUM CHLORIDE 10 ML SYRINGE IV SCH ×3 (05:09→21:03)
[2022-09-03 07:05] LABS: Basophils # (Auto) 0.04 K/mcL (0.00-0.30); Basophils % (Auto) 0.3 % (0.0-2.0); Eosinophils # (Auto) 0.38 K/mcL (0.00-0.70); Eosinophils % (Auto) 3.2 % (0.0-7.0); Hemoglobin 14.5 g/dL (11.2-15.7); Lymphocytes # (Auto) 2.62 K/mcL (1.50-4.80); Lymphocytes % (Auto) 22.2 % (15.5-49.0); Mean Cell Volume 88.2 fL (80.0-100.0); Mean Platelet Volume 10.3 fL (8.8-12.5); Monocytes # (Auto) 1.39 K/mcL (0.10-0.90); Monocytes % (Auto) 11.8 % (1.0-12.0); Neutrophils % (Auto) 62.2 % (38.0-78.0); Platelet Count 386 K/mcL (140-440); RBC 4.99 M/mcL (3.59-5.38); WBC 11.8 K/mcL (4.5-11.0)
[2022-09-03 07:43] LABS: Blood Urea Nitrogen 9 mg/dL (8-23); Calcium 8.8 mg/dL (8.6-10.4); Carbon Dioxide 27 mmol/L (22-30); Chloride 99 mmol/L (96-108); Glomerular Filtration Rate 86; Glucose 132 mg/dL (70-105)
[2022-09-03] MEDS: DEXTROSE 5%-1/2NS W/20MEQ KCL 1,000 ML IV SCH ×2 (08:31→21:03)
--- NOTE | 2022-09-03 08:31 | XRay Report ---
INDICATION: Follow-up small bowel obstruction TECHNIQUE: Dilute water-soluble contrast material was given through the esophagogastric tube. Serial imaging through approximately 19 hours performed. COMPARISON: Previous CT scan dated 09/01/2022 FINDINGS: Immediate images demonstrate the tip of the esophagogastric tube in a hiatal hernia. There is gastroesophageal reflux. No evidence for aspiration. Small bowel is dilated with delayed passage of contrast material. At 5 hours postingestion there is no definite colonic contrast material. Images. Next morning (approximately 19 hours postingestion) demonstrate contrast material throughout the entire colon including the rectum. A transition point within the small bowel is not identified IMPRESSION: 1. Slow passage of contrast material through the small and large bowel as above 2. Dilated small bowel without demonstrable transition point Interpreted and Authenticated by: Mariano Rouse 09/03/22
[2022-09-03] MEDS ORDERED: POTASSIUM CHLORIDE 40 MEQ in DEXTROSE 5% IN WATER 500 ML IV ONE (09:00)
--- NOTE | 2022-09-03 13:24 | EKG ---
[facility] Test Date: 2022-09-01 Pat Name: Latoya Delgado Department: ED Room: Gender: Female Nutrition Representative: SB : 1940 Requested By: Ryan Villareal Order Number: [id number] Reading MD: Mariano Gonzalez M.D. Measurements Intervals [place] Rate: 80 P: 10 MA: 174 QRS: -36 QRSD: 147 T: 138 QT: 479 QTc: 551 Interpretive Statements Sinus rhythm Atrial premature complex Left bundle branch block Electronically Signed On 09-03-2022 13:23:51 PDT by Mariano Gonzalez M.D. /store/[email or web address]/[id number]
--- NOTE | 2022-09-03 15:33 | General Surgery Progress Note ---
SUBJECTIVE Subjective Patient information: Note initiated : 09/03/22 at 3:31 pm Service Date, if different from initiated Date: [] Patient: Latoya Delgado 81 y/o F admitted on 09/01/22 for N/V. Chief Complaint: [] Principal diagnosis: Small bowel obstruction Interval history: Patient feels better overnight, had small bowel follow-through yesterday which showed contrast throughout the small bowel and colon this morning, patient started having bowel movements, passing flatus several hours ago. Patient has been ambulatory today. Pertinent ROS: Denies abdominal pain, no nausea vomiting fevers or chills Constitutional Vitals: Vital Signs Temp Pulse Resp BP Pulse Ox O2 Del Method O2 Flow Rate 98.4 F 75 16 138/72 94 Room Air 2 09/03/22 11:27 09/03/22 11:27 09/03/22 11:27 09/03/22 11:27 09/03/22 11:27 09/03/22 11:27 09/03/22 04:47 Period Temp Pulse Resp BP Sys/Agustin Pulse Ox O2 Del Method O2 Flow Rate Last 24 Hr 97.1 F-99.0 F 73-92 14-20 134-163/59-87 88-96 Nasal Cannula- Room Air 2 Intake and Output 09/03/22 09/03/22 09/03/22 03:59 11:59 19:59 Intake Total 959 737 520 Output Total 600 750 500 Balance 359 -13 20 Intake & Output: Intake & Output 09/03/22 09/03/22 09/03/22 03:59 11:59 19:59 Intake Total 959 737 520 Output Total 600 750 500 Balance 359 -13 20 Intake: IV 899 737 520 Dextrose 5%-1/2Ns IV Solution 1 379 702 ,000 ml @ 125 mls/hr IV .Q8H [facility] Rx#:[id number] Dextrose 5%-1/2Ns W/20Meq KCl 1 35 0 ,000 ml @ 125 mls/hr IV .Q8H [facility] Rx#:[id number] Potassium Chloride 40 Meq In 520 520 Dextrose 5% in Water 500 ml @ 130 mls/hr IV ONCE ONE Rx#: [id number] Oral 60 Tube Feeding 0 0 Output: Gastric Drainage 450 600 300 Right Nare NG/OG 450 600 300 Void Amount 150 150 Stool 200 Other: Urine Appearance Clear Clear Urine Color Bright Yellow Dark Yellow Urine Odor Normal Strong Stool Size Large Small Stool Color Brown Brown Stool Consistency Soft Liquid Dry and Hard Watery Franci # Bowel Movements 1 General appearance: cooperative and no acute distress GI/Abdominal GI/Abdominal exam: Present normal bowel sounds, soft and hernia (Softer incisional hernia); Absent distended, rebound or tenderness A/P Assessment and plan (1) Incisional hernia: Status: Acute (2) Small bowel obstruction: Status: Acute Plan Resolving partial small bowel obstruction secondary to incarcerated incisional hernia. We will clamp NG tube, start clear liquid diet. If patient tolerates can advance diet in a.m. We will discuss surgical repair of incisional hernia as an outpatient. Time Spent With Patient Time: Total time spent is greater than 50% in coordination of care (as documented) at patient's floor/unit and/or counseling patient:
[2022-09-03] MEDS: rOPINIRole 0.25 MG TABLET PO SCH (21:03)
[2022-09-04] MEDS: ONDANSETRON 4 MG/2 ML VIAL IV PRN ×2 (00:45→22:45)
[2022-09-04] MEDS: DEXTROSE 5%-1/2NS W/20MEQ KCL 1,000 ML IV SCH ×5 (01:12→22:19)
[2022-09-04] MEDS: 0.9 % SODIUM CHLORIDE 10 ML SYRINGE IV SCH ×3 (05:31→21:23)
[2022-09-04] MEDS: rOPINIRole 0.25 MG TABLET PO SCH (21:22)
[2022-09-05] MEDS: 0.9 % SODIUM CHLORIDE 10 ML SYRINGE IV SCH (06:09)
[2022-09-05] MEDS: DEXTROSE 5%-1/2NS W/20MEQ KCL 1,000 ML IV SCH ×2 (06:16→09:20)
--- NOTE | 2022-09-05 07:39 | Discharge Summary ---
Discharge Provider Provider IMPORTANT FOLLOW-UP INFORMATION FOR PCP: Patient information: Note initiated : 09/05/22 at 7:38 am Service Date, if different from initiated Date: [] Patient: Latoya Delgado 81 y/o F admitted on 09/01/22 for N/V. Chief Complaint: [] Date of admission: 09/01/22 21:54 Discharge date: 09/05/22 Primary care physician: Christy Tovar Consults: 09/01/22 Consult to Physician [CONS] Stat Comment: Consulting Provider: Eric Espinal Reason For Exam: Physician to Consult COURSE Hospital Course Hospital course: Patient was admitted with an incarcerated ventral hernia causing a bowel obstruction, no signs of strangulation. Patient was treated conservatively for partial small bowel obstruction, she resolved without difficulty and her diet was advanced without difficulty. She now feels better, is tolerating regular diet, is ambulatory, her incarcerated hernia is no longer incarcerated and she is having normal bowel movements. Discharge diagnosis: Status post resolved bowel obstruction Time Spent with Patient Time attestation: Total time spent providing and/or coordinating discharge services: Time spent: Less than 30 minutes Physical Examination Vital Signs Vital signs: Temp Pulse Resp BP Pulse Ox O2 Del Method O2 Flow Rate 98.1 F 61 18 160/60 94 Room Air 2 09/05/22 03:49 09/05/22 03:49 09/05/22 03:49 09/05/22 03:49 09/05/22 03:49 09/05/22 03:49 09/03/22 04:47 Discharge Plan Patient/Caregiver Discharge Instructions Activity: increase activity as tolerated Diet: Regular Diet Activity Restrictions/Additional Instructions: Follow-up with me in 1 to 2 weeks Prescriptions: Continued duloxetine 30 mg capsule,delayed release(DR/EC) 30 mg PO QDAY Qty: 30 1RF ropinirole 0.5 mg tablet See Rx Instructions .ROUTE .COMPLEX Qty: 150 4RF Dose Instruction: TAKE ONE TABLET BY MOUTH up to FIVE TIMES DAILY Rx Instructions: TAKE ONE TABLET BY MOUTH up to FIVE TIMES DAILY hydrocodone-acetaminophen 5-325 mg tablet 1 tab PO Q6H PRN (Reason: pain) Qty: 120 0RF omeprazole 40 mg capsule,delayed release(DR/EC) 40 mg PO BID Qty: 60 4RF Humira(CF) Pen 40 mg/0.4 mL pen injector kit 40 mg SUB-Q Q14D Qty: 2 0RF Rx Instructions: pt states ran out end april Follow Up Plan Follow up with: Eric Espinal MD [Physician] - Christy Tovar ARNP [Primary Care Provider] - Patient Disposition: Home, Self-Care Discharge Orders: Discharge Order (Routine); Ordered 09/05/22 Ordered By: Eric Espinal Pending Pending Pending: Resuscitation Status Resuscitate (Full Code) Diet Regular Diet Start WedSep 04 08 Hydromorphone HCl (Hydromorphone 0.5 Mg/0.5 Ml Syringe) 0.5 mg IV Q2HP PRN; Protocol PRN Reason: Per Pain Protocol Last Admin: 09/02/22 07:55 Dose: 0.5 mg Documented By: Admin: 09/02/22 03:16 Dose: 0.5 mg Documented By: Admin: 09/01/22 23:25 Dose: 0.5 mg Documented By: Admin: 09/01/22 21:09 Dose: 0.5 mg Documented By: YA Potassium Chloride/Dextrose/Sod Cl (Dextrose 5%-1/2ns W/20meq Kcl) 1,000 mls @ 125 mls/hr IV .Q8H [facility] Admin: 09/05/22 06:16 Dose: 125 mls/hr Documented By: Infusion: 09/05/22 06:16 Dose: 125 mls/hr Documented By: Admin: 09/04/22 22:19 Dose: 125 mls/hr Documented By: Infusion: 09/04/22 22:15 Dose: 125 mls/hr Documented By: Admin: 09/04/22 14:15 Dose: 125 mls/hr Documented By: Infusion: 09/04/22 13:38 Dose: 125 mls/hr Documented By: Admin: 09/04/22 07:59 Dose: Not Given Documented By: Admin: 09/04/22 05:38 Dose: 125 mls/hr Documented By: Infusion: 09/04/22 05:03 Dose: 125 mls/hr Documented By: Admin: 09/04/22 01:12 Dose: Not Given Documented By: Admin: 09/03/22 21:03 Dose: 125 mls/hr Documented By: Infusion: 09/03/22 20:29 Dose: 125 mls/hr Documented By: Infusion: 09/03/22 12:45 Dose: 125 mls/hr Documented By: Infusion: 09/03/22 08:48 Dose: 0 mls/hr Documented By: Admin: 09/03/22 08:31 Dose: 125 mls/hr Documented By: LEA Ondansetron HCl (Ondansetron 4 Mg/2 Ml Vial) 4 mg IV Q6HP PRN PRN Reason: Nausea And Vomiting Last Admin: 09/04/22 22:45 Dose: 4 mg Documented By: Admin: 09/04/22 00:45 Dose: 4 mg Documented By: Admin: 09/02/22 21:25 Dose: 4 mg Documented By: Admin: 09/02/22 08:07 Dose: 4 mg Documented By: Admin: 09/01/22 21:08 Dose: 4 mg Documented By: YA Ropinirole HCl (Ropinirole 0.25 Mg Tablet) 0.5 mg PO HS [facility] Last Admin: 09/04/22 21:22 Dose: 0.5 mg Documented By: Admin: 09/03/22 21:03 Dose: 0.5 mg Documented By: Admin: 09/02/22 20:53 Dose: 0.5 mg Documented By: SHELBY Sodium Chloride (0.9 % Sodium Chloride 10 Ml Syringe) 10 ml IV Q8 [facility] Last Admin: 09/05/22 06:09 Dose: Not Given Documented By: Admin: 09/04/22 21:23 Dose: Not Given Documented By: Admin: 09/04/22 14:12 Dose: Not Given Documented By: Admin: 09/04/22 05:31 Dose: Not Given Documented By: Admin: 09/03/22 21:03 Dose: Not Given Documented By: Admin: 09/03/22 13:28 Dose: Not Given Documented By: Admin: 09/03/22 05:09 Dose: Not Given Documented By: Admin: 09/02/22 21:25 Dose: 10 ml Documented By: Admin: 09/02/22 13:54 Dose: Not Given Documented By: Admin: 09/02/22 07:53 Dose: Not Given Documented By: Admin: 09/01/22 22:37 Dose: Not Given Documented By: Jose LuisXJanice Shift Summary 09/05/22 05:17 Shift Summary by Maria Isabel Magdaleno Assumed Pt care @ 1830. Pt is alert and oriented x 4 and in no apparent signs and symptoms of distress. Pt reports nausea and no pain, PRN Zofran given @ 2245, call light within reach and whiteboard updated. Pt on RA with saturations in the 90's. Pt PIV on LAC infusing D5 1/2NS 20mEq K @ 125 ml/hr. Pt SBP at midnight was in the 160's with urine output greater than 30 ml/hr. Pt tolerated stand pivoting to bedside commode. No acute events all night. Initialized on 09/05/22 05:17 - END OF NOTE
== END 2022-09-05 12:20 | disposition home or self-care (01) | DRG 395 ==
LOC: ED 13:16 → ICU 21:54 → MEDSUR 09-04 05:24
PROVIDERS: ADMIT Surgery; ATTEND Surgery